=== PATIENT | female | born 1955 | race African-American/Black ===

== ENCOUNTER 2023-01-21 10:06 | Observation (INO) ==
--- NOTE | 2023-01-21 10:20 | DR.EXTPAIN ---
HPI Time seen Time Seen by Provider: 01/21/23 10:52 Complaint/Symptoms Chief Complaint Doctor Comments: 67 y/o female with persistent pain of her R leg, beneath the R knee. Pt fell on her knees 4 months ago, having problems with the R leg ever since. I saw the pt 2 months ago, appreared to have a traumatic hematoma, with infection back then. Attempted needle aspiration back then, nothing much came out. Has been seen here several times for pain, swelling of the area. Antibiotics have seemed to calm it down, but pain/swelling worsens when off antibiotics. Pt seen here 3 days ago, with worsening pain, swelling. Had a wound of the area open and drained. Now with worsening pain of the area. Sharp, severe, radiates to calf. + worse with palpation, moving. Nothing makes it better. Denies fever, chills, URI symptoms, bowel/bladder complaints. Nurses notes reviewed Nurses Notes Review: Yes Source History Provided: Patient Mode of arrival Mode of Arrival: Wheelchair PMH PMH Past Medical History: Hypertension and Seizures Past Surgical History: Yes Surgical History: Other Family History Family Medical History: Coronary Artery Disease, Heart Failure and Sudden Cardiac Social History Does patient currently use any type of tobacco product: No Alcohol Use: None Do you use any recreational Drugs:: No ROS Review of Systems Constitutional: No Symptoms Reported Eyes: No Symptoms Reported ENTM: No Symptoms Reported Respiratoy: No Symptoms Reported Cardiovascular: No Symptoms Reported Gastrointestinal/Abdominal: No Symptoms Reported Genitourinary: No Symptoms Reported Neurological: No Symptoms Reported Musculoskeletal: No Symptoms Reported Integumentary: See HPI All Other Systems: Reviewed and Negative PE Vital Signs Vitals: Vital Signs Temperature 98.0 F Pulse Rate 84 Respiratory Rate 18 Respiratory Rate 18 Blood Pressure 127/84 O2 Sat by Pulse Oximetry 100 General General Appearance: Alert and In No Apparent Distress Eyes Eye exam: PERRL and EOMI Neck Neck Exam: Normal Inspection Respiratory Respiratory Exam: Normal Lung Sounds Bilat; negative Accessory Muscle Use or Respiratory Distress Cardiovascular Cardiovascular Exam: Regular Rate, Normal Rhythm and Normal Heart Sounds Extremities Extremities Exam: negative Edema Neurological Neurological Exam: Alert, Oriented X3 and CN II-XII Intact; negative Motor Sensory Deficit Skin Skin Exam: Warm and Dry Other Exam Other Exam: R torres - + 3-4 cm round, deep open wound, with some white exudate. + surrounding erythema/tenderness. No obvious fuctuance. Distal NV intact. COURSE Treatment Treatment: 67 y/o female with large, open wound of R anterior proximal torres, recently opened and drained. + concerning for worsening infection. Labs obtained. 1354 - recommend admission for IV antibiotics. Will consult with surgery, discussed with Dr Somers, will see later today. Discussed with Dr Juarez, pest control worker helper, accepts the admission. Will treat with IV zosyn/vancomycin. ROR Labs Reviewed 01/21/23 11:45 01/21/23 11:45 Laboratory: 01/21/23 11:06 Knee - Right Wound Gram Stain - Final WBC 9.8 X10^3/uL (3.6-10.0) 01/21/23 11:45 RBC 4.21 X10^6/uL (3.5-5.4) 01/21/23 11:45 Hgb 11.4 g/dL (12.0-16.0) L 01/21/23 11:45 Hct 35.7 % (36.0-47.0) L 01/21/23 11:45 MCV 84.8 fL (80.0-100.0) 01/21/23 11:45 MCH 27.1 pg (27.0-34.0) 01/21/23 11:45 MCHC 31.9 g/dL (33.0-35.0) L 01/21/23 11:45 RDW 14.4 % (11.6-16.5) 01/21/23 11:45 Plt Count 223 X10^3/uL (150.0-450.0) 01/21/23 11:45 MPV 7.4 fL (7.4-11.0) 01/21/23 11:45 Neut % (Auto) 77.7 % (42.0-75.0) H 01/21/23 11:45 Lymph % (Auto) 11.1 % (21.0-51.0) L 01/21/23 11:45 [place] % (Auto) 6.7 % (0.0-13.0) 01/21/23 11:45 Eos % (Auto) 3.8 % (0.9-2.9) H 01/21/23 11:45 Baso % (Auto) 0.7 % (0.2-1.0) 01/21/23 11:45 Neut # (Auto) 7.6 x10^3/uL (2.2-4.8) H 01/21/23 11:45 Lymph # (Auto) 1.1 X10^3/uL (1.3-2.9) L 01/21/23 11:45 [place] # (Auto) 0.7 x10^3/uL (0.3-0.8) 01/21/23 11:45 Eos # (Auto) 0.4 x10^3/uL (0.0-0.2) H 01/21/23 11:45 Baso # (Auto) 0.1 X10^3/uL (0.0-0.1) 01/21/23 11:45 Absolute Nucleated RBC 0.1 /100WBC 01/21/23 11:45 Sodium 136 mmol/L (136-145) 01/21/23 11:45 Corrected Sodium TNP 01/21/23 11:45 Potassium 4.2 mmol/L (3.5-5.1) 01/21/23 11:45 Chloride 102 mmol/L (98-107) 01/21/23 11:45 Carbon Dioxide 21.8 mmol/L (21-32) 01/21/23 11:45 BUN 14 mg/dL (7-18) 01/21/23 11:45 Creatinine 1.27 mg/dL (0.55-1.02) H 01/21/23 11:45 Est GFR (MDRD) Af Amer 54 (>60) L 01/21/23 11:45 Est GFR (MDRD) Non-Af 45 (>60) L 01/21/23 11:45 Glucose 64 mg/dL (65-99) L 01/21/23 11:45 Lactic Acid Cancelled 01/21/23 11:45 Calcium 8.5 mg/dL (8.5-10.1) 01/21/23 11:45 Corrected Calcium 9.6 mg/dL (8.5-10.1) 01/21/23 11:45 Total Bilirubin 0.60 mg/dL (0.2-1.0) 01/21/23 11:45 AST 34 Units/L (15-37) 01/21/23 11:45 ALT 23 Units/L (12-78) 01/21/23 11:45 Alkaline Phosphatase 94 Units/L (46-116) 01/21/23 11:45 Total Protein 6.6 g/dL (6.4-8.2) 01/21/23 11:45 Albumin 2.6 g/dL (3.4-5.0) L 01/21/23 11:45 Globulin 4.0 g/dL (2.5-4.5) 01/21/23 11:45 Albumin/Globulin Ratio 0.7 Ratio (1.1-2.1) L 01/21/23 11:45 Opioid Opioid Risk Tool Age (Estiven box if 16-45): No History of Preadolescent Sexual Abuse: No Total: 0 Total Score Risk Category: Low Risk Copyright: Marcelo SINHA predicting aberrant behaviors Discharge Plan Diagnosis Discharge Problem: Cellulitis of leg, right, Open wound, lower leg Discharge Plan Patient Disposition: ADMITTED INPATIENT Condition: Stable Health Concerns: Post Hospitalization: new medications and changes needed to prevent readmission or further decline. Pt educated and given instructions on all concerns. Plan of Treatment: Continue with present treatment and follow up plan. Pt is to keep follow up appointment as instructed and take medications as ordered. Orders to Discharge Patient Discharge Orders: Transfer (Routine); Ordered 01/21/23 Ordered By: Berekte Salmon Follow ups/Referrals Follow ups/Referrals: MOISE VANN [Primary Care Provider] - 3 days
[2023-01-21 12:00] LABS: BASOPHILS # (AUTO) 0.1 X10^3/uL (0.0-0.1); BASOPHILS % (AUTO) 0.7 % (0.2-1.0); EOSINOPHILS # (AUTO) 0.4 x10^3/uL (0.0-0.2); EOSINOPHILS % (AUTO) 3.8 % (0.9-2.9); HEMATOCRIT 35.7 % (36.0-47.0); HEMOGLOBIN 11.4 g/dL (12.0-16.0); LYMPHOCYTES # (AUTO) 1.1 X10^3/uL (1.3-2.9); LYMPHOCYTES % (AUTO) 11.1 % (21.0-51.0); MEAN CORPUSCULAR HEMOGLOBIN 27.1 pg (27.0-34.0); MEAN CORPUSCULAR HGB CONC 31.9 g/dL (33.0-35.0); MEAN CORPUSCULAR VOLUME 84.8 fL (80.0-100.0); MEAN PLATELET VOLUME 7.4 fL (7.4-11.0); MONOCYTES # (AUTO) 0.7 x10^3/uL (0.3-0.8); MONOCYTES % (AUTO) 6.7 % (0.0-13.0); NEUTROPHILS # (AUTO) 7.6 x10^3/uL (2.2-4.8); NEUTROPHILS % (AUTO) 77.7 % (42.0-75.0); PLATELET COUNT 223 X10^3/uL (150.0-450.0); RED BLOOD COUNT 4.21 X10^6/uL (3.5-5.4); RED CELL DISTRIBUTION WIDTH 14.4 % (11.6-16.5); WHITE BLOOD COUNT 9.8 X10^3/uL (3.6-10.0)
[2023-01-21 12:16] LABS: ALANINE AMINOTRANSFERASE 23 Units/L (12-78); ALBUMIN 2.6 g/dL (3.4-5.0); ALKALINE PHOSPHATASE 94 Units/L (46-116); ASPARTATE AMINO TRANSFERASE 34 Units/L (15-37); BLOOD UREA NITROGEN 14 mg/dL (7-18); CALCIUM 8.5 mg/dL (8.5-10.1); CARBON DIOXIDE 21.8 mmol/L (21-32); CHLORIDE 102 mmol/L (98-107); COR CA(FOR HYPOALB) 9.6 mg/dL (8.5-10.1); CREATININE 1.27 mg/dL (0.55-1.02); GLUCOSE 64 mg/dL (65-99); POTASSIUM 4.2 mmol/L (3.5-5.1); SODIUM 136 mmol/L (136-145); TOTAL PROTEIN 6.6 g/dL (6.4-8.2); eGFR NON BLACK RACES 45 (>60)
[2023-01-21] MEDS ORDERED: MORPHINE SULFATE INJ 4 MG IVP ONE (12:31)
[2023-01-21] MEDS ORDERED: ZOFRAN INJ 4 MG VIAL IVP ONE (12:31)
[2023-01-21] MEDS ORDERED: MORPHINE SULFATE INJ 4 MG ONE (12:43)
[2023-01-21] MEDS ORDERED: ZOFRAN INJ 4 MG VIAL ONE (12:43)
[2023-01-21] MEDS ORDERED: ZOSYN VIAL 3.375 GRAMS 3.375 G in NS 100 ML IV 100 ML IV ONE (13:30)
[2023-01-21] MEDS ORDERED: NS 100 ML IV 100 ML ONE ×2 (13:37→13:54)
[2023-01-21] MEDS ORDERED: ZOSYN VIAL 3.375 GRAMS IV ONE ×2 (13:37→13:54)
[2023-01-21] MEDS ORDERED: VANCOMYCIN IV *PREMIX 1 G/200 ML BAG 1 G/200 ML PIGGYBACK IV ONE ×2 (13:54→14:13)
[2023-01-21] MEDS ORDERED: PHARMACY CONSULT - VANCOMYCIN XX SCH (14:00)
[2023-01-21] MEDS ORDERED: CONSULT PHARMACY - POTASSIUM & MAGNESIUM XX SCH (15:24)
[2023-01-21] MEDS ORDERED: VANCOMYCIN IV *PREMIX 1 G/200 ML BAG 1 G/200 ML PIGGYBACK IV SCH ×2 (15:24→22:00)
[2023-01-21] MEDS: LOVENOX INJ 40 MG SYR SC SCH (16:30)
[2023-01-21] MEDS: ZOSYN VIAL 3.375 GRAMS 3.375 G in NS 100 ML IV 100 ML IV SCH ×2 (16:40→21:02)
[2023-01-21] MEDS ORDERED: NovoLIN R (or HumuLIN R) SC PRN (17:03)
[2023-01-21] MEDS: GLUTOSE 15 GEL ORAL PO PRN (17:05)
[2023-01-21] MEDS ORDERED: GLUTOSE 15 GEL ORAL PO ONE (17:08)
[2023-01-21] MEDS ORDERED: NS 500 ML IV 500 ML IV PRN (19:21)
[2023-01-21] MEDS ORDERED: TYLENOL 325 MG TAB PO PRN (19:33)
[2023-01-21] MEDS: VANCOMYCIN IV *PREMIX 1 G/200 ML BAG 1 G/200 ML PIGGYBACK IV SCH (21:01)
[2023-01-21] MEDS: MORPHINE SULFATE INJ 2 MG INJ IVP PRN (23:11)
[2023-01-22 05:07] LABS: BASOPHILS # (AUTO) 0.1 X10^3/uL (0.0-0.1); BASOPHILS % (AUTO) 0.7 % (0.2-1.0); EOSINOPHILS # (AUTO) 0.4 x10^3/uL (0.0-0.2); EOSINOPHILS % (AUTO) 5.5 % (0.9-2.9); HEMATOCRIT 27.7 % (36.0-47.0); LYMPHOCYTES # (AUTO) 0.9 X10^3/uL (1.3-2.9); LYMPHOCYTES % (AUTO) 12.4 % (21.0-51.0); MEAN CORPUSCULAR HEMOGLOBIN 27.5 pg (27.0-34.0); MEAN CORPUSCULAR HGB CONC 32.7 g/dL (33.0-35.0); MEAN CORPUSCULAR VOLUME 84.1 fL (80.0-100.0); MEAN PLATELET VOLUME 7.7 fL (7.4-11.0); MONOCYTES # (AUTO) 0.6 x10^3/uL (0.3-0.8); MONOCYTES % (AUTO) 8.5 % (0.0-13.0); NEUTROPHILS # (AUTO) 5.5 x10^3/uL (2.2-4.8); NEUTROPHILS % (AUTO) 72.9 % (42.0-75.0); PLATELET COUNT 279 X10^3/uL (150.0-450.0); RED CELL DISTRIBUTION WIDTH 14.5 % (11.6-16.5); WHITE BLOOD COUNT 7.5 X10^3/uL (3.6-10.0)
[2023-01-22] MEDS ORDERED: D50W ABBOJECT SYR IV ONE (05:18)
[2023-01-22 05:20] LABS: ALANINE AMINOTRANSFERASE 12 Units/L (12-78); ALBUMIN 1.6 g/dL (3.4-5.0); ALKALINE PHOSPHATASE 63 Units/L (46-116); ASPARTATE AMINO TRANSFERASE 17 Units/L (15-37); BLOOD UREA NITROGEN 16 mg/dL (7-18); CALCIUM 7.9 mg/dL (8.5-10.1); CARBON DIOXIDE 22.7 mmol/L (21-32); CHLORIDE 108 mmol/L (98-107); COR CA(FOR HYPOALB) 9.8 mg/dL (8.5-10.1); CREATININE 1.31 mg/dL (0.55-1.02); GLUCOSE 78 mg/dL (65-99); POTASSIUM 4.1 mmol/L (3.5-5.1); SODIUM 141 mmol/L (136-145); TOTAL PROTEIN 5.2 g/dL (6.4-8.2); eGFR NON BLACK RACES 43 (>60)
[2023-01-22] MEDS: ZOSYN VIAL 3.375 GRAMS 3.375 G in NS 100 ML IV 100 ML IV SCH ×3 (05:20→21:39)
[2023-01-22] MEDS: VANCOMYCIN IV *PREMIX 1 G/200 ML BAG 1 G/200 ML PIGGYBACK IV SCH ×3 (05:21→20:30)
[2023-01-22 05:26] LABS: HEMOGLOBIN 9.1 g/dL (12.0-16.0)
[2023-01-22] MEDS ORDERED: D50W ABBOJECT SYR ONE (05:36)
[2023-01-22] MEDS: MORPHINE SULFATE INJ 2 MG INJ IVP PRN ×4 (07:20→20:55)
[2023-01-22] MEDS: LOVENOX INJ 40 MG SYR SC SCH (08:23)
[2023-01-22] MEDS ORDERED: NORCO 5/325 MG TAB ONE (09:15)
[2023-01-22] MEDS: NORCO 5/325 MG TAB PO PRN ×2 (09:18→14:54)
--- NOTE | 2023-01-22 12:07 | DR.H&P ---
H&P - History & Physical for Day of: H&P Date: 01/21/23 - Chief Complaint Chief Complaint: RIGHT LEG PAIN AND WOUND - History of Present Illness History of Present Illness: IS A 67 YEAR OLD PATIENT OF [facility]. SHE HAS A PMH OF HTN AND SEIZURE DISORDER. PRESENTED TO THE ER WITH COMPLAINTS OF RIGHT LEG PAIN. PAIN IS LOCATED JUST BENEATH THE RIGHT KNEE. PATIENT REPORTS INITIALLY FALLING ON HER KNEES FOUR MONTHS AGO. SINCE THEN, SHE HAS HAD INTERMITTENT PAIN IN SWELLING IN THAT LEG. WHEN THE INCIDENT FIRST OCCURRED, PATIENT DEVELOPED A TRAUMATIC HEMATOMA WITH INFECTION. NEEDLE ASPIRATION WAS ATTEMPTED BUT NO DRAINAGE WAS COLLECTED. SHE HAS BEEN ON SEVERAL ANTIBITOTICS SINCE THEN. SHE REPORTS THAT SYMPTOMS IMPROVE WHILE SHE IS ON ANTIBIOTICS, BUT WORSEN WHEN SHE IS OFF. SHE COMPLAINS OF WORSENING PAIN AND SWELLING FOR THE PAST 3 DAYS. THERE IS NOW A 3-4 CM OPEN WOUND BENEATH THE KNEE WITH PURULENT DRAINAGE. THERE IS ERYTHEMA AND TENDERNESS SURROUNDING THE WOUND. SHE DESCRIBES PAIN SHARP, CONSTANT, AND WORSE WITH MOVEMENT OR PALPATION. SHE RATES PAIN A 7/10. SHE DENIES FEVER, CHILLS, URI SX, BOWEL OR BLADDER COMPLAINTS. ON ARRIVAL TO THE HOSPITAL, HER VITALS WERE: 98.0-84-18-100%-127/84. LABS WERE OBTAINED. WBC 9.8, RBC 4.21, HGB 11.4, HCT 35.7, SODIUM 136, POTASSIUM 4.2, CHLORIDE 102, BUN 14, CREATININE 1.27, GLUCOSE 64, CALCIUM 8.5, AST 34, ALT 23, ALK PHOS 23, TOTAL PROTEIN 6.6, ALBUMIN 2.6. WOUND AND BLOOD CULTURES WERE SET UP. A VENOUS DOPPLER WAS OBTAINED ON 01/11 AND WAS NEGATIVE FOR DVT. RIGHT TIB/FIB XRAY ONLY REVEALED EXTENSIVE SUBCUTANEOUS EDEMA. IN THE ER, SHE WAS GIVEN MORPHINE 4MG IV X 1 DOSE, ZOFRAN 4MG IV X 1 DOSE, ZOSYN 3.375G IV X 1 DOSE, VANCOMYCIN 1G IV X 1 DOSE. SHE WAS ADMITTED TO THE HOSPITAL OBSERVATION STATUS FOR FURTHER EVALUATION AND TREATMENT OF RIGHT LEG CELLULITIS, RIGHT LEG NON-HEALING WOUND, HTN, SEIZURE DISORDER. SHE WAS STARTED ON ZOSYN 3.375G IV TID, VANCOMYCIN 1G IV Q8H, MORPHINE SULFATE 1-2MG IV Q4H PRN, HUMULIN R SLIDING SCALE, OTBS ACHS, NORCO 5/325MG Q6H PRN, LOVENOX 40MG SC DAILY, AND TYLENOL 650MG PO Q6H PRN. WE WILL RESUME HIS HOME MEDICATIONS OF LISINOPRIL AND LEVETIRACETAM. WE WILL CONSULT GENERAL SURGERY FOR POSSIBLE DEBRIDEMENT OF WOUND. OTHERWISE, WE WILL FOLLOW UP WITH AM LABS AND CONTINUE TO MONITOR. TIME SPENT ON CLINICAL ASSESSMENT, REVIEWING LABS AND IMAGING, DECISION MAKING, AND DOCUMENTATION GREATER THAN 75 MINUTES. - Past Medical History Past Medical History: Hypertension, Seizures - Past Surgical History Surgical History: Other - Family History Family Medical History: Coronary Artery Disease, Heart Failure, Sudden Cardiac - Social History Does patient currently use any type of tobacco product: No Alcohol Use: None Drug Use: None - Review of Systems Constitutional: denies: Fever, Chills, Weakness Eyes: No Symptoms Reported ENT: No Symptoms Reported Respiratory: No Symptoms Reported Cardiovascular: No Symptoms Reported Gastrointestinal: No Symptoms Reported Genitourinary: No Symptoms Reported Musculoskeletal: See HPI, Leg Pain (RIGHT LEG ) Skin: Wound (RIGHT LEG OPEN WOUND WITH PURULENT DRAINAGE) Neurological: No Symptoms Reported - Physical Exam Vital Signs: Vital Signs Pulse Rate 98 Pulse Rate 97 Pulse Rate 106 Respiratory Rate 20 Respiratory Rate 18 Respiratory Rate 18 Respiratory Rate 18 Respiratory Rate 16 Respiratory Rate 16 Blood Pressure 115/56 Blood Pressure 115/70 Blood Pressure 93/53 O2 Sat by Pulse Oximetry 100 O2 Sat by Pulse Oximetry 100 O2 Sat by Pulse Oximetry 100 Oriented: Normal Eyes: Normal Ear: Normal Nose: Normal Throat: Normal Respiratory: Clear Throughout Cardiovascular: Normal : Normal Auscultation: Bowel Sounds: Normal Palpation: Normal Tenderness: Normal Skin: Red, Tender, Wound (RIGHT LEG (BELOW KNEE) ) Musculoskeletal: Right, Leg, Swelling, Tender Psychiatric: Normal Mood Description: Calm Affect: Normal Speech Pattern: Clear - Assessment/Plan (1) Cellulitis of leg, right Status: Acute Plan: ADMIT, SURGICAL CONSULT FOR DEBRIDEMENT, ZOSYN 3.375G IV TID, VANCOMYCIN 1G IV Q8H, MORPHINE SULFATE 1-2MG IV Q4H PRN, HUMULIN R SLIDING SCALE, OTBS ACHS, NORCO 5/325MG Q6H PRN, LOVENOX 40MG SC DAILY, AND TYLENOL 650MG PO Q6H PRN (2) Non-healing wound of right lower extremity Status: Acute (3) HTN (hypertension) Qualifiers: Hypertension type: primary hypertension Qualified Code(s): I10 - Essential (primary) hypertension Status: Chronic Plan: CONTINUE LISINOPRIL (4) Seizure disorder Status: Chronic Plan: CONTINUE LEVETIRACETAM - Allergies Allergies/Adverse Reactions: Allergies Allergy/AdvReac Type Severity Reaction Status Date / Time No Known Drug Allergies Allergy Verified 01/17/23 18:00 - Medications Home Medications: Home Medications Medication Instructions Recorded Confirmed levetiracetam 500 mg tablet 500 mg PO BID 01/21/23 01/21/23 lisinopril 20 mg tablet 20 mg PO BID 01/21/23 01/21/23
[2023-01-22 12:58] VITALS: BMI 42.3
[2023-01-22] MEDS ORDERED: PHARMACY COMMENT IV NR (13:30)
[2023-01-22 14:10] LABS: CREATININE 1.04 mg/dL (0.55-1.02); VANCOMYCIN,TROUGH 15.9 ug/mL (15-20)
[2023-01-22] MEDS: KEPPRA TAB 500 MG PO SCH ×2 (14:54→21:30)
[2023-01-22] MEDS: GLUTOSE 15 GEL ORAL PO PRN (15:33)
--- NOTE | 2023-01-23 | DR.CONSULT ---
CONSULT Consultation for Day of: Date: 01/22/23 Chief Complaint Chief Complaint: Wound to the right leg below the knee Allergies Allergies Allergy/AdvReac Type Severity Reaction Status Date / Time No Known Drug Allergies Allergy Verified 01/17/23 18:00 History of Present Illness History of Present Illness: this is a 67 year old female who fell several weeks ago and has a non-healing wound below the knee on the right side. Wound is open and measured approximately 5 by 4 by 0.8 cm with exudate and questionable abscess above this in the subcutaneous tissue. Past Medical History Past Medical History: Hypertension and Seizures Past Surgical History Surgical History: Other Family History Family Medical History: Coronary Artery Disease, Heart Failure and Sudden Cardiac Social History Does patient currently use any type of tobacco product: No Alcohol Use: None Drug Use: None Medications Home Medications: No Known Drug Allergies Allergy (Verified 01/17/23 18:00) CONTINUE taking the following medications levetiracetam 500 mg tablet 500 mg PO BID 01/21/23 [History] lisinopril 20 mg tablet 20 mg PO BID 01/21/23 [History] Review of Systems Constitutional: See HPI Eyes: No Symptoms Reported ENT: No Symptoms Reported Respiratory: No Symptoms Reported Cardiovascular: No Symptoms Reported Gastrointestinal: No Symptoms Reported Genitourinary: No Symptoms Reported Musculoskeletal: No Symptoms Reported Skin: See HPI Neurological: No Symptoms Reported Physical Exam Vital Signs: Vital Signs Temperature 97.8 F Temperature 97.3 F Temperature 97.1 F Pulse Rate 110 Pulse Rate 108 Pulse Rate 109 Pulse Rate 106 Pulse Rate 107 Pulse Rate 108 Pulse Rate 115 Pulse Rate 122 Pulse Rate 103 Pulse Rate 104 Pulse Rate 101 Pulse Rate 101 Pulse Rate 105 Pulse Rate 104 Pulse Rate 109 Pulse Rate 109 Pulse Rate 115 Pulse Rate 140 Pulse Rate 122 Pulse Rate 122 Pulse Rate 118 Pulse Rate 121 Pulse Rate 103 Pulse Rate 108 Pulse Rate 108 Pulse Rate 116 Pulse Rate 122 Pulse Rate 117 Pulse Rate 117 Pulse Rate 117 Respiratory Rate 22 Respiratory Rate 23 Respiratory Rate 21 Respiratory Rate 19 Respiratory Rate 18 Respiratory Rate 18 Respiratory Rate 22 Respiratory Rate 20 Respiratory Rate 24 Respiratory Rate 34 Respiratory Rate 15 Respiratory Rate 20 Respiratory Rate 21 Respiratory Rate 20 Respiratory Rate 14 Respiratory Rate 18 Respiratory Rate 20 Respiratory Rate 18 Respiratory Rate 22 Respiratory Rate 44 Respiratory Rate 22 Respiratory Rate 22 Respiratory Rate 19 Respiratory Rate 30 Respiratory Rate 17 Respiratory Rate 16 Respiratory Rate 16 Respiratory Rate 14 Respiratory Rate 20 Respiratory Rate 21 Respiratory Rate 20 Respiratory Rate 18 Respiratory Rate 22 Respiratory Rate 16 Respiratory Rate 16 Blood Pressure 108/59 Blood Pressure 140/74 Blood Pressure 145/67 Blood Pressure 101/61 Blood Pressure 99/55 Blood Pressure 110/58 Blood Pressure 110/58 Blood Pressure 101/56 Blood Pressure 101/56 Blood Pressure 106/55 Blood Pressure 106/55 O2 Sat by Pulse Oximetry 100 O2 Sat by Pulse Oximetry 100 O2 Sat by Pulse Oximetry 100 O2 Sat by Pulse Oximetry 100 O2 Sat by Pulse Oximetry 100 O2 Sat by Pulse Oximetry 100 O2 Sat by Pulse Oximetry 100 O2 Sat by Pulse Oximetry 97 O2 Sat by Pulse Oximetry 99 O2 Sat by Pulse Oximetry 100 O2 Sat by Pulse Oximetry 100 O2 Sat by Pulse Oximetry 100 O2 Sat by Pulse Oximetry 100 O2 Sat by Pulse Oximetry 98 O2 Sat by Pulse Oximetry 99 O2 Sat by Pulse Oximetry 99 O2 Sat by Pulse Oximetry 100 O2 Sat by Pulse Oximetry 100 O2 Sat by Pulse Oximetry 100 O2 Sat by Pulse Oximetry 100 O2 Sat by Pulse Oximetry 100 O2 Sat by Pulse Oximetry 100 O2 Sat by Pulse Oximetry 99 O2 Sat by Pulse Oximetry 100 O2 Sat by Pulse Oximetry 100 O2 Sat by Pulse Oximetry 100 O2 Sat by Pulse Oximetry 100 O2 Sat by Pulse Oximetry 100 O2 Sat by Pulse Oximetry 100 O2 Sat by Pulse Oximetry 100 Oriented: Normal, Time, Person and Place Eyes: Normal Ear: Normal Nose: Normal Throat: Normal Respiratory: Clear Throughout Cardiovascular: Normal : Normal Auscultation: Bowel Sounds: Normal Palpation: Normal Tenderness: Normal Skin: Wound (5 by 4 by 0.8 cm wound exudate [id number] over the anterior tibial surface with fluctuance above the superior Rim consistent with possible abscess. No obvious cellulitis. ) Musculoskeletal: Normal Psychiatric: Normal Mood Description: Calm Affect: Normal Speech Pattern: Clear Plan (1) Cellulitis of leg, right: Status: Acute Plan: Continue IV antibiotics (2) Non-healing wound of right lower extremity: Status: Acute Plan: will debride the wound and open any undrain puss and place wound vacuum tomorrow (3) HTN (hypertension): Status: Chronic Qualifiers: Hypertension type: primary hypertension Qualified Code(s): I10 - Essential (primary) hypertension Plan: home medications (4) Seizure disorder: Status: Chronic Plan: home medications
[2023-01-23] MEDS: VANCOMYCIN IV *PREMIX 1 G/200 ML BAG 1 G/200 ML PIGGYBACK IV SCH ×3 (05:38→22:40)
[2023-01-23 05:43] LABS: BASOPHILS # (AUTO) 0.1 X10^3/uL (0.0-0.1); BASOPHILS % (AUTO) 0.8 % (0.2-1.0); EOSINOPHILS # (AUTO) 0.4 x10^3/uL (0.0-0.2); HEMATOCRIT 27.3 % (36.0-47.0); LYMPHOCYTES # (AUTO) 1.2 X10^3/uL (1.3-2.9); LYMPHOCYTES % (AUTO) 16.3 % (21.0-51.0); MEAN CORPUSCULAR HEMOGLOBIN 27.7 pg (27.0-34.0); MEAN CORPUSCULAR HGB CONC 32.8 g/dL (33.0-35.0); MEAN CORPUSCULAR VOLUME 84.5 fL (80.0-100.0); MEAN PLATELET VOLUME 7.5 fL (7.4-11.0); MONOCYTES # (AUTO) 0.7 x10^3/uL (0.3-0.8); MONOCYTES % (AUTO) 9.6 % (0.0-13.0); NEUTROPHILS % (AUTO) 68.3 % (42.0-75.0); PLATELET COUNT 300 X10^3/uL (150.0-450.0); RED BLOOD COUNT 3.23 X10^6/uL (3.5-5.4); RED CELL DISTRIBUTION WIDTH 14.7 % (11.6-16.5); WHITE BLOOD COUNT 7.4 X10^3/uL (3.6-10.0)
[2023-01-23] MEDS: ZOSYN VIAL 3.375 GRAMS 3.375 G in NS 100 ML IV 100 ML IV SCH ×3 (05:51→22:54)
[2023-01-23 05:57] LABS: ALANINE AMINOTRANSFERASE 12 Units/L (12-78); ALBUMIN 1.5 g/dL (3.4-5.0); ALKALINE PHOSPHATASE 62 Units/L (46-116); ASPARTATE AMINO TRANSFERASE 18 Units/L (15-37); BLOOD UREA NITROGEN 11 mg/dL (7-18); CALCIUM 7.9 mg/dL (8.5-10.1); CARBON DIOXIDE 22.7 mmol/L (21-32); CHLORIDE 107 mmol/L (98-107); COR CA(FOR HYPOALB) 9.9 mg/dL (8.5-10.1); GLUCOSE 85 mg/dL (65-99); POTASSIUM 4.3 mmol/L (3.5-5.1); SODIUM 138 mmol/L (136-145); TOTAL PROTEIN 5.4 g/dL (6.4-8.2); eGFR NON BLACK RACES 53 (>60)
[2023-01-23] MEDS: KEPPRA TAB 500 MG PO SCH ×3 (08:03→20:20)
[2023-01-23] MEDS: LOVENOX INJ 40 MG SYR SC SCH (08:03)
[2023-01-23] MEDS: D5 NS 1,000 ML IV 1,000 ML IV SCH ×2 (08:51→22:54)
--- NOTE | 2023-01-23 09:45 | EKG ---
Test Reason : pre-op...pt is in ICU1 Blood Pressure : */* mmHG Vent. Rate : 83 BPM Atrial Rate : 83 BPM P-R Int : 148 ms QRS Dur : 74 ms QT Int : 338 ms P-R-T Axes : 60 25 28 degrees QTc Int : 397 ms Normal sinus rhythm Normal ECG No previous ECGs available Confirmed by Ivan Hernandes ([id number]) on 01/26/2023 8:05:53 AM Referred By: Confirmed By: Ivan Hernandes
[2023-01-23] MEDS ORDERED: KETAMINE 50 MG/5 ML-NACL SYRNG ONE (11:00)
[2023-01-23] MEDS ORDERED: VERSED ONE (11:01)
[2023-01-23] MEDS ORDERED: ZOFRAN INJ 4 MG VIAL ONE (11:01)
[2023-01-23] MEDS ORDERED: DIPRIVAN VIAL 20 ML ONE (11:01)
[2023-01-23] MEDS ORDERED: FENTANYL VIAL INJ 100 mcg ONE (11:01)
[2023-01-23] MEDS ORDERED: PEPCID 20 MG VIAL ONE (11:01)
[2023-01-23] MEDS ORDERED: ANCEF VIAL 1 GRAM ONE (11:07)
[2023-01-23] MEDS ORDERED: NS 100 ML IV 100 ML ONE (11:07)
[2023-01-23] MEDS ORDERED: LR 1,000 ML IV 1,000 ML IV ONE (11:07)
[2023-01-23] MEDS ORDERED: BETADINE SOLN ONE (11:09)
[2023-01-23] MEDS ORDERED: MARCAINE 0.5% ONE (11:44)
[2023-01-23] MEDS ORDERED: XYLOCAINE 2 % (PLAIN) ONE (11:49)
[2023-01-23] MEDS: MORPHINE SULFATE INJ 2 MG INJ IVP PRN ×2 (12:32→20:30)
[2023-01-23] MEDS: ZOFRAN INJ 4 MG VIAL IVP PRN (12:40)
[2023-01-23] MEDS ORDERED: ZOFRAN INJ 4 MG VIAL IVP PRN (12:42)
--- NOTE | 2023-01-23 12:48 | PCM.PROG ---
Progress Note - Progress Note for Day of Date of Exam: 01/23/23 - Subjective Subjective: IS CURRENTLY OBSERVATION STATUS FOR TREATMENT OF CELLULITIS OF THE RIGHT LEG AND A NON-HEALING WOUND OF THE RIGHT LOWER EXTREMITY. SHE HAS A PMH OF HTN AND SEIZURE DISORDER. TODAY, SHE IS ALERT AND ORIENTED, LYING IN BED ON MORNING ROUNDS. SHE CONTINUES TO COMPLAIN OF INTERMITT ENT PAIN TO THE RLE. SHE DENIES SIGNIFICANT IMPROVEMENT IN SYMPTOMS SINCE ADMISSION. ON EXAMINATION, HEART IS REGULAR IN RATE AND RHYTHM. BILATERAL LUNGS ARE NOTED WITH DIMINISHED LUNG SOUNDS THROUGHOUT. ABDOMEN IS ROUND, SOFT, AND NON-TENDER WITH NORMAL BOWEL SOUNDS NOTED IN ALL QUADRANTS. 5X4X0.8CM WOUND BELOW THE KNEE OVER THE ANTERIOR TIBIAL SURFACE NOTED. THERE IS MILD ERYTHEMA SURROUNDING SITE. GOOD RANGE OF MOTION NOTED TO UPPER AND LOWER EXTREMITIES. HER VITALS THIS [facility] ARE: 98.6-99-17-100%-110/57. LABS WERE OBTAINED. WBC 7.4, RBC 3.23, HGB 9.0, HCT 27.3, PLT COUNT 300, SODIUM 138, POTASSIUM 4.3, CHLORIDE 107, BUN 11, CREATININE 1.10, GLUCOSE 85, CALCIUM 7.9, AST 18, ALT 12, ALK PHOS 62, CRP 142.10, TOTAL PROTEIN 5.4, ALBUMIN 1.5. BLOOD CULTURES ARE PENDING. 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 CONSULTED WITH HER AND PLANS FOR DEBRIDEMENT AND PLACEMENT OF WOUND VAC TODAY. WE ARE IN AGREEMENT WITH PLANS. SHE IS CURRENTLY RECEIVING ZOSYN 3.375G IV TID, VANCOMYCIN 1G IV Q8H, MORPHINE SULFATE 1-2MG IV Q4H PRN, HUMULIN R SLIDING SCALE, OTBS ACHS, NORCO 5/325MG Q6H PRN, LOVENOX 40MG SC DAILY, AND TYLENOL 650MG PO Q6H PRN. DUE TO SOME DROP IN BLOOD GLUCOSE LEVELS SINCE SHE HAS BEEN NPO, WE WILL ADD D5NS AT 75 ML/HR. OTHERWISE, WE WILL FOLLOW UP WITH AM LABS AND CONTINUE TO MONITOR. TIME SPENT ON CLINICAL ASSESSMENT, REVIEWING LABS AND IMAGING, DECISION MAKING, AND DOCUMENTATION GREATER THAN 45 MINUTES. - Past Medical Family Social History Past Med/Fam/Surg Hx: No changes since H&P Allergies: Allergies No Known Drug Allergies Allergy (Verified 01/17/23 18:00) - Review of Systems ROS: No change since H&P - Vital Signs and I&O's Vital Signs: Vital Signs Temperature 98.6 F Pulse Rate 95 Pulse Rate 91 Pulse Rate 87 Pulse Rate 81 Pulse Rate 80 Pulse Rate 90 Pulse Rate 90 Pulse Rate 96 Pulse Rate 93 Pulse Rate 101 Pulse Rate 96 Pulse Rate 95 Pulse Rate 100 Pulse Rate 99 Pulse Rate 123 Pulse Rate 99 Pulse Rate 103 Pulse Rate 108 Pulse Rate 95 Pulse Rate 101 Pulse Rate 100 Pulse Rate 98 Pulse Rate 98 Pulse Rate 98 Pulse Rate 100 Pulse Rate 105 Pulse Rate 103 Respiratory Rate 20 Respiratory Rate 16 Respiratory Rate 19 Respiratory Rate 17 Respiratory Rate 26 Respiratory Rate 23 Respiratory Rate 18 Respiratory Rate 44 Respiratory Rate 23 Respiratory Rate 16 Respiratory Rate 28 Respiratory Rate 17 Respiratory Rate 20 Respiratory Rate 19 Respiratory Rate 17 Respiratory Rate 28 Respiratory Rate 14 Respiratory Rate 15 Respiratory Rate 15 Respiratory Rate 17 Respiratory Rate 23 Respiratory Rate 19 Respiratory Rate 18 Respiratory Rate 15 Respiratory Rate 17 Respiratory Rate 16 Respiratory Rate 19 Respiratory Rate 19 Blood Pressure 116/69 Blood Pressure 119/72 Blood Pressure 109/63 Blood Pressure 109/57 Blood Pressure 110/57 Blood Pressure 120/57 Blood Pressure 127/61 Blood Pressure 121/60 O2 Sat by Pulse Oximetry 96 O2 Sat by Pulse Oximetry 100 O2 Sat by Pulse Oximetry 100 O2 Sat by Pulse Oximetry 100 O2 Sat by Pulse Oximetry 99 O2 Sat by Pulse Oximetry 100 O2 Sat by Pulse Oximetry 100 O2 Sat by Pulse Oximetry 100 O2 Sat by Pulse Oximetry 100 O2 Sat by Pulse Oximetry 100 O2 Sat by Pulse Oximetry 100 O2 Sat by Pulse Oximetry 100 O2 Sat by Pulse Oximetry 100 O2 Sat by Pulse Oximetry 100 O2 Sat by Pulse Oximetry 100 O2 Sat by Pulse Oximetry 100 O2 Sat by Pulse Oximetry 100 O2 Sat by Pulse Oximetry 100 O2 Sat by Pulse Oximetry 100 O2 Sat by Pulse Oximetry 100 O2 Sat by Pulse Oximetry 100 O2 Sat by Pulse Oximetry 100 O2 Sat by Pulse Oximetry 100 O2 Sat by Pulse Oximetry 100 O2 Sat by Pulse Oximetry 100 O2 Sat by Pulse Oximetry 100 O2 Sat by Pulse Oximetry 100 Intake and Output: Intake & Output 01/21/23 01/22/23 01/23/23 01/24/23 11:59 11:59 11:59 11:59 Intake Total 882 / 882 1923 / 1923 600 / 600 Output Total 250 / 250 Balance 882 / 882 1923 / 1923 350 / 350 - Physical Exam Oriented: Normal, Time, Person, Place Eyes: Normal Ear: Normal Nose: Normal Throat: Normal Respiratory: Generalized, Diminished Cardiovascular: Normal : Normal Auscultation: Bowel Sounds: Normal Palpation: Normal Tenderness: Normal Skin: Wound (5 by 4 by 0.8 cm wound exudate [id number] over the anterior tibial surface with fluctuance above the superior Rim consistent with possible abscess. No obvious cellulitis.) Musculoskeletal: Normal Psychiatric: Normal Mood Description: Calm Affect: Normal Speech Pattern: Clear, Appropriate - Laboratory and Diagnostics Result Diagrams: 01/23/23 04:51 01/23/23 04:51 Labs: 01/21/23 11:45 Blood Blood Culture - Preliminary 01/21/23 11:35 Blood Blood Culture - Preliminary 01/21/23 11:06 Knee - Right Wound Gram Stain - Final 01/21/23 11:06 Knee - Right Wound Culture - Preliminary Pseudomonas Aeruginosa Laboratory WBC 7.4 X10^3/uL (3.6-10.0) 01/23/23 04:51 RBC 3.23 X10^6/uL (3.5-5.4) L 01/23/23 04:51 Hgb 9.0 g/dL (12.0-16.0) L 01/23/23 04:51 Hct 27.3 % (36.0-47.0) L 01/23/23 04:51 MCV 84.5 fL (80.0-100.0) 01/23/23 04:51 MCH 27.7 pg (27.0-34.0) 01/23/23 04:51 MCHC 32.8 g/dL (33.0-35.0) L 01/23/23 04:51 RDW 14.7 % (11.6-16.5) 01/23/23 04:51 Plt Count 300 X10^3/uL (150.0-450.0) 01/23/23 04:51 MPV 7.5 fL (7.4-11.0) 01/23/23 04:51 Neut % (Auto) 68.3 % (42.0-75.0) 01/23/23 04:51 Lymph % (Auto) 16.3 % (21.0-51.0) L 01/23/23 04:51 [place] % (Auto) 9.6 % (0.0-13.0) 01/23/23 04:51 Eos % (Auto) 5.0 % (0.9-2.9) H 01/23/23 04:51 Baso % (Auto) 0.8 % (0.2-1.0) 01/23/23 04:51 Neut # (Auto) 5.0 x10^3/uL (2.2-4.8) H 01/23/23 04:51 Lymph # (Auto) 1.2 X10^3/uL (1.3-2.9) L 01/23/23 04:51 [place] # (Auto) 0.7 x10^3/uL (0.3-0.8) 01/23/23 04:51 Eos # (Auto) 0.4 x10^3/uL (0.0-0.2) H 01/23/23 04:51 Baso # (Auto) 0.1 X10^3/uL (0.0-0.1) 01/23/23 04:51 Absolute Nucleated RBC 0.0 /100WBC 01/23/23 04:51 Sodium 138 mmol/L (136-145) 01/23/23 04:51 Corrected Sodium TNP 01/23/23 04:51 Potassium 4.3 mmol/L (3.5-5.1) 01/23/23 04:51 Chloride 107 mmol/L (98-107) 01/23/23 04:51 Carbon Dioxide 22.7 mmol/L (21-32) 01/23/23 04:51 BUN 11 mg/dL (7-18) 01/23/23 04:51 Creatinine 1.10 mg/dL (0.55-1.02) H 01/23/23 04:51 Est GFR (MDRD) Af Amer > 60 (>60) 01/23/23 04:51 Est GFR (MDRD) Non-Af 53 (>60) L 01/23/23 04:51 Glucose 85 mg/dL (65-99) 01/23/23 04:51 POC Glucose (mg/dL) 73 mg/dL (65-99) 01/23/23 04:09 Lactic Acid Cancelled 01/21/23 11:45 Calcium 7.9 mg/dL (8.5-10.1) L 01/23/23 04:51 Corrected Calcium 9.9 mg/dL (8.5-10.1) 01/23/23 04:51 Total Bilirubin 0.20 mg/dL (0.2-1.0) 01/23/23 04:51 AST 18 Units/L (15-37) 01/23/23 04:51 ALT 12 Units/L (12-78) 01/23/23 04:51 Alkaline Phosphatase 62 Units/L (46-116) 01/23/23 04:51 C-Reactive Protein 142.10 mg/L (0-3.0) H 01/23/23 04:51 Total Protein 5.4 g/dL (6.4-8.2) L 01/23/23 04:51 Albumin 1.5 g/dL (3.4-5.0) L 01/23/23 04:51 Globulin 3.9 g/dL (2.5-4.5) 01/23/23 04:51 Albumin/Globulin Ratio 0.4 Ratio (1.1-2.1) L 01/23/23 04:51 Vancomycin Trough 15.9 ug/mL (15-20) 01/22/23 13:33 - Plan (1) Cellulitis of leg, right Status: Acute Plan: SURGICAL CONSULT FOR DEBRIDEMENT, ZOSYN 3.375G IV TID, VANCOMYCIN 1G IV Q8H, MORPHINE SULFATE 1-2MG IV Q4H PRN, HUMULIN R SLIDING SCALE, OTBS ACHS, NORCO 5/325MG Q6H PRN, LOVENOX 40MG SC DAILY, AND TYLENOL 650MG PO Q6H PRN (2) Non-healing wound of right lower extremity Status: Acute (3) HTN (hypertension) Status: Chronic Qualifiers: Hypertension type: primary hypertension Qualified Code(s): I10 - Essential (primary) hypertension Plan: CONTINUE LISINOPRIL (4) Seizure disorder Status: Chronic Plan: CONTINUE LEVETIRACETAM
--- NOTE | 2023-01-23 12:48 | OR.IMMED ---
IMMEDIATE POST-OP NOTE Immediate Post-Op Note Pre-Op Diagnosis: Open wound right anterior tibial surface Post-Op Diagnosis: same Procedure: Debridement /excision of wound right anterior tibial surface and place wound vacuum Description of Procedure: dictated Surgeon/Preschool Assistant Principal: Cesar Findings: non- healing wound right leg, no obvious abscess. Specimens Removed: none sent Complications: none Discharge Progress Notes: return to I see you. Continue IV antibiotics. Continuing wound vacuum.
[2023-01-23 22:31] LABS: CREATININE 1.04 mg/dL (0.55-1.02)
[2023-01-23 22:33] LABS: VANCOMYCIN,TROUGH 20.8 ug/mL (15-20)
[2023-01-24] MEDS: MORPHINE SULFATE INJ 2 MG INJ IVP PRN ×5 (03:04→20:33)
[2023-01-24] MEDS: VANCOMYCIN IV *PREMIX 1 G/200 ML BAG 1 G/200 ML PIGGYBACK IV SCH ×2 (05:07→17:25)
[2023-01-24 05:44] LABS: BASOPHILS # (AUTO) 0.1 X10^3/uL (0.0-0.1); BASOPHILS % (AUTO) 0.8 % (0.2-1.0); EOSINOPHILS # (AUTO) 0.3 x10^3/uL (0.0-0.2); EOSINOPHILS % (AUTO) 4.7 % (0.9-2.9); HEMATOCRIT 26.4 % (36.0-47.0); HEMOGLOBIN 8.6 g/dL (12.0-16.0); LYMPHOCYTES # (AUTO) 1.3 X10^3/uL (1.3-2.9); LYMPHOCYTES % (AUTO) 17.8 % (21.0-51.0); MEAN CORPUSCULAR HEMOGLOBIN 27.2 pg (27.0-34.0); MEAN CORPUSCULAR HGB CONC 32.6 g/dL (33.0-35.0); MEAN CORPUSCULAR VOLUME 83.6 fL (80.0-100.0); MEAN PLATELET VOLUME 7.3 fL (7.4-11.0); MONOCYTES # (AUTO) 0.9 x10^3/uL (0.3-0.8); MONOCYTES % (AUTO) 13.3 % (0.0-13.0); NEUTROPHILS # (AUTO) 4.5 x10^3/uL (2.2-4.8); NEUTROPHILS % (AUTO) 63.4 % (42.0-75.0); PLATELET COUNT 277 X10^3/uL (150.0-450.0); RED BLOOD COUNT 3.15 X10^6/uL (3.5-5.4); RED CELL DISTRIBUTION WIDTH 14.4 % (11.6-16.5)
[2023-01-24 05:48] LABS: ALANINE AMINOTRANSFERASE 9 Units/L (12-78); ALBUMIN 1.4 g/dL (3.4-5.0); ALKALINE PHOSPHATASE 59 Units/L (46-116); ASPARTATE AMINO TRANSFERASE 20 Units/L (15-37); BLOOD UREA NITROGEN 7 mg/dL (7-18); CALCIUM 7.8 mg/dL (8.5-10.1); CARBON DIOXIDE 22.2 mmol/L (21-32); CHLORIDE 107 mmol/L (98-107); COR CA(FOR HYPOALB) 9.9 mg/dL (8.5-10.1); CREATININE 1.02 mg/dL (0.55-1.02); GLUCOSE 92 mg/dL (65-99); POTASSIUM 4.2 mmol/L (3.5-5.1); SODIUM 138 mmol/L (136-145); TOTAL PROTEIN 5.1 g/dL (6.4-8.2); eGFR NON BLACK RACES 58 (>60)
[2023-01-24 06:07] LABS: WHITE BLOOD COUNT 7.7 X10^3/uL (3.6-10.0)
[2023-01-24 06:09] LABS: PLATELET MORPHOLOGY COMMENT NORMAL (NORMAL)
[2023-01-24] MEDS: ZOSYN VIAL 3.375 GRAMS 3.375 G in NS 100 ML IV 100 ML IV SCH ×3 (06:09→21:55)
[2023-01-24] MEDS: LOVENOX INJ 40 MG SYR SC SCH (08:29)
[2023-01-24] MEDS: KEPPRA TAB 500 MG PO SCH ×2 (08:29→21:55)
[2023-01-24] MEDS: NORCO 5/325 MG TAB PO PRN ×2 (08:30→21:55)
[2023-01-24] MEDS: D5 NS 1,000 ML IV 1,000 ML IV SCH (10:32)
--- NOTE | 2023-01-24 11:14 | PCM.PROG ---
Progress Note Progress Note for Day of Date of Exam: 01/24/23 Subjective Subjective: PT IS A 67 YEAR OLD FEMALE ADMITTED FOR TREATMENT OF CELLULITIS OF THE RIGHT LEG AND A NON-HEALING WOUND OF THE RIGHT LOWER EXTREMITY. SHE HAS A PMH OF HTN AND SEIZURE DISORDER. THIS MORNING PATIENT IS LAYING IN BED, NO ACUTE EVENTS OVERNIGHT. SHE DOES CONTINUE TO COMPLAIN OF INTERMITTENT PAIN TO THE RLE. PAIN MEDICATION HAS BEEN HELPING. SHE IS STATUS POST WOUND DEBRIDEMENT WITH WOUND VAC PLACEMENT. LABS WERE OBTAINED. WBC 7.7, HGB 8.6, PLT 277, NA 138, K 4.2, CREATININE 1.02, GLUCOSE 92, CRP 80, BLOOD CULTURES ARE NO GROWTH TO DATE. 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 SHE IS CURRENTLY RECEIVING ZOSYN 3.375G IV TID, VANCOMYCIN 1G IV Q8H, MORPHINE SULFATE 1-2MG IV Q4H PRN, HUMULIN R SLIDING SCALE, OTBS ACHS, NORCO 5/325MG Q6H PRN, LOVENOX 40MG SC DAILY, AND TYLENOL 650MG PO Q6H PRN. SHE IS CURRENTLY RECEIVING D5NS AT 75 ML/HR. OTHERWISE, WILL CONTINUE WITH CURRENT TREATMENT PLAN. FOLLOW UP WITH LABS AND CONTINUE TO MONITOR. TIME SPENT ON CLINICAL ASSESSMENT, REVIEWING LABS AND IMAGING, DECISION MAKING, AND DOCUMENTATION GREATER THAN 45 MINUTES. Past Medical Family Social History Past Med/Fam/Surg Hx: No changes since H&P Allergies: Allergies No Known Drug Allergies Allergy (Verified 01/17/23 18:00) Review of Systems ROS: No change since H&P Vital Signs and I&O's Vital Signs: Vital Signs Temperature 98.6 F Temperature 99.3 F Pulse Rate 88 Pulse Rate 92 Pulse Rate 102 Pulse Rate 110 Pulse Rate 104 Pulse Rate 102 Pulse Rate 97 Pulse Rate 100 Pulse Rate 101 Pulse Rate 109 Pulse Rate 99 Pulse Rate 109 Pulse Rate 104 Pulse Rate 99 Pulse Rate 92 Pulse Rate 92 Pulse Rate 94 Pulse Rate 99 Pulse Rate 99 Pulse Rate 103 Pulse Rate 109 Pulse Rate 116 Pulse Rate 110 Pulse Rate 106 Pulse Rate 115 Pulse Rate 112 Pulse Rate 104 Pulse Rate 105 Pulse Rate 101 Pulse Rate 109 Pulse Rate 101 Pulse Rate 103 Pulse Rate 109 Respiratory Rate 14 Respiratory Rate 17 Respiratory Rate 17 Respiratory Rate 20 Respiratory Rate 20 Respiratory Rate 22 Respiratory Rate 16 Respiratory Rate 16 Respiratory Rate 22 Respiratory Rate 17 Respiratory Rate 16 Respiratory Rate 17 Respiratory Rate 26 Respiratory Rate 18 Respiratory Rate 17 Respiratory Rate 19 Respiratory Rate 65 Respiratory Rate 18 Respiratory Rate 22 Respiratory Rate 17 Respiratory Rate 16 Respiratory Rate 21 Respiratory Rate 16 Respiratory Rate 14 Respiratory Rate 17 Respiratory Rate 18 Respiratory Rate 17 Respiratory Rate 17 Respiratory Rate 31 Respiratory Rate 26 Respiratory Rate 19 Respiratory Rate 18 Respiratory Rate 29 Respiratory Rate 19 Respiratory Rate 16 Respiratory Rate 24 Respiratory Rate 18 Respiratory Rate 17 Blood Pressure 108/61 Blood Pressure 101/53 Blood Pressure 107/57 Blood Pressure 101/62 Blood Pressure 90/50 Blood Pressure 90/50 Blood Pressure 98/53 Blood Pressure 85/48 Blood Pressure 98/53 Blood Pressure 117/62 Blood Pressure 117/62 O2 Sat by Pulse Oximetry 100 O2 Sat by Pulse Oximetry 100 O2 Sat by Pulse Oximetry 100 O2 Sat by Pulse Oximetry 100 O2 Sat by Pulse Oximetry 100 O2 Sat by Pulse Oximetry 100 O2 Sat by Pulse Oximetry 100 O2 Sat by Pulse Oximetry 100 O2 Sat by Pulse Oximetry 100 O2 Sat by Pulse Oximetry 100 O2 Sat by Pulse Oximetry 100 O2 Sat by Pulse Oximetry 100 O2 Sat by Pulse Oximetry 100 O2 Sat by Pulse Oximetry 98 O2 Sat by Pulse Oximetry 100 O2 Sat by Pulse Oximetry 100 O2 Sat by Pulse Oximetry 100 O2 Sat by Pulse Oximetry 100 O2 Sat by Pulse Oximetry 100 O2 Sat by Pulse Oximetry 100 O2 Sat by Pulse Oximetry 100 O2 Sat by Pulse Oximetry 100 O2 Sat by Pulse Oximetry 100 O2 Sat by Pulse Oximetry 100 O2 Sat by Pulse Oximetry 99 O2 Sat by Pulse Oximetry 100 O2 Sat by Pulse Oximetry 99 O2 Sat by Pulse Oximetry 99 O2 Sat by Pulse Oximetry 99 O2 Sat by Pulse Oximetry 100 O2 Sat by Pulse Oximetry 99 O2 Sat by Pulse Oximetry 99 O2 Sat by Pulse Oximetry 99 Intake and Output: Intake & Output 01/21/23 01/22/23 01/23/23 01/24/23 23:59 23:59 23:59 23:59 Intake Total 674 / 674 188 / 188 3059 / 3059 627 / 627 Output Total 250 / 250 Balance 674 / 674 188 / 1881 2809 / 2809 627 / 627 Physical Exam Oriented: Normal, Time, Person and Place Eyes: Normal Ear: Normal Nose: Normal Throat: Normal Respiratory: Generalized and Diminished Cardiovascular: Normal : Normal Auscultation: Bowel Sounds: Normal Tenderness: Normal Skin: Wound (wound vac placed) Musculoskeletal: Normal Psychiatric: Normal Mood Description: Calm Affect: Normal Speech Pattern: Clear and Appropriate Laboratory and Diagnostics 01/24/23 04:20 01/24/23 04:20 Labs: 01/23/23 12:00 Leg - Right Wound Gram Stain - Final 01/23/23 12:00 Leg - Right Wound Culture - Preliminary 01/21/23 11:06 Knee - Right Wound Gram Stain - Final 01/21/23 11:06 Knee - Right Wound Culture - Final Pseudomonas Aeruginosa 01/21/23 11:45 Blood Blood Culture - Preliminary 01/21/23 11:35 Blood Blood Culture - Preliminary Laboratory WBC 7.7 X10^3/uL (3.6-10.0) 01/24/23 04:20 RBC 3.15 X10^6/uL (3.5-5.4) L 01/24/23 04:20 Hgb 8.6 g/dL (12.0-16.0) L 01/24/23 04:20 Hct 26.4 % (36.0-47.0) L 01/24/23 04:20 MCV 83.6 fL (80.0-100.0) 01/24/23 04:20 MCH 27.2 pg (27.0-34.0) 01/24/23 04:20 MCHC 32.6 g/dL (33.0-35.0) L 01/24/23 04:20 RDW 14.4 % (11.6-16.5) 01/24/23 04:20 Plt Count 277 X10^3/uL (150.0-450.0) 01/24/23 04:20 Plt Count Comment Adequate (ADEQUATE) 01/24/23 04:20 MPV 7.3 fL (7.4-11.0) L 01/24/23 04:20 Neut % (Auto) 63.4 % (42.0-75.0) 01/24/23 04:20 Lymph % (Auto) 17.8 % (21.0-51.0) L 01/24/23 04:20 [place] % (Auto) 13.3 % (0.0-13.0) H 01/24/23 04:20 Eos % (Auto) 4.7 % (0.9-2.9) H 01/24/23 04:20 Baso % (Auto) 0.8 % (0.2-1.0) 01/24/23 04:20 Neut # (Auto) 4.5 x10^3/uL (2.2-4.8) 01/24/23 04:20 Lymph # (Auto) 1.3 X10^3/uL (1.3-2.9) 01/24/23 04:20 [place] # (Auto) 0.9 x10^3/uL (0.3-0.8) H 01/24/23 04:20 Eos # (Auto) 0.3 x10^3/uL (0.0-0.2) H 01/24/23 04:20 Baso # (Auto) 0.1 X10^3/uL (0.0-0.1) 01/24/23 04:20 Absolute Nucleated RBC 0.1 /100WBC 01/24/23 04:20 Plt Morphology Comment Normal (NORMAL) 01/24/23 04:20 RBC Morphology Normal (NORMAL) 01/24/23 04:20 Sodium 138 mmol/L (136-145) 01/24/23 04:20 Corrected Sodium TNP 01/24/23 04:20 Potassium 4.2 mmol/L (3.5-5.1) 01/24/23 04:20 Chloride 107 mmol/L (98-107) 01/24/23 04:20 Carbon Dioxide 22.2 mmol/L (21-32) 01/24/23 04:20 BUN 7 mg/dL (7-18) 01/24/23 04:20 Creatinine 1.02 mg/dL (0.55-1.02) 01/24/23 04:20 Est GFR (MDRD) Af Amer > 60 (>60) 01/24/23 04:20 Est GFR (MDRD) Non-Af 58 (>60) L 01/24/23 04:20 Glucose 92 mg/dL (65-99) 01/24/23 04:20 POC Glucose (mg/dL) 135 mg/dL (65-99) H 01/24/23 05:18 Lactic Acid Cancelled 01/21/23 11:45 Calcium 7.8 mg/dL (8.5-10.1) L 01/24/23 04:20 Corrected Calcium 9.9 mg/dL (8.5-10.1) 01/24/23 04:20 Total Bilirubin 0.30 mg/dL (0.2-1.0) 01/24/23 04:20 AST 20 Units/L (15-37) 01/24/23 04:20 ALT 9 Units/L (12-78) L 01/24/23 04:20 Alkaline Phosphatase 59 Units/L (46-116) 01/24/23 04:20 C-Reactive Protein 80.50 mg/L (0-3.0) H 01/24/23 04:20 Total Protein 5.1 g/dL (6.4-8.2) L 01/24/23 04:20 Albumin 1.4 g/dL (3.4-5.0) L 01/24/23 04:20 Globulin 3.7 g/dL (2.5-4.5) 01/24/23 04:20 Albumin/Globulin Ratio 0.4 Ratio (1.1-2.1) L 01/24/23 04:20 Vancomycin Trough 20.8 ug/mL (15-20) H* 01/23/23 21:30 Plan (1) Cellulitis of leg, right: Status: Acute Plan: S/P DEBRIDEMENT AND WOUND VAC PLACEMENT, ZOSYN 3.375G IV TID, VANCOMYCIN 1G IV Q8H, MORPHINE SULFATE 1-2MG IV Q4H PRN, HUMULIN R SLIDING SCALE, OTBS ACHS, NORCO 5/325MG Q6H PRN, LOVENOX 40MG SC DAILY, AND TYLENOL 650MG PO Q6H PRN (2) Non-healing wound of right lower extremity: Status: Acute (3) HTN (hypertension): Status: Chronic Qualifiers: Hypertension type: primary hypertension Qualified Code(s): I10 - Essential (primary) hypertension Plan: CONTINUE LISINOPRIL (4) Seizure disorder: Status: Chronic Plan: CONTINUE LEVETIRACETAM
--- NOTE | 2023-01-24 18:41 | NOTE.SOAP ---
Soap Note Note for Day of Date of Exam: 01/24/23 Subjective Data Subjective Data: POD # 1 after debridement of right leg wound and application of wound vacuum. Objective Data Temperature: 97.6 F Pulse Rate: 87 Respiratory Rate: 21 Blood Pressure: 119/60 O2 Sat by Pulse Oximetry: 100 Objective Data: Wound vacuum in pLACE WITH VERY LITTLE OUTPUT. WOUND IS CLEAN, Cultures of wound positive for Pseudomonas . Assessment Assessment: s/p DEBRIDEMENT OF RIGHT LEG WOUND. DOING WELL. Plan Plan: Continue wound vacuum . May be able to switch to po Cipro as the wound cultures are sensitive to this. May need some PT of SNF placement as she is walking very little.
[2023-01-25] MEDS: MORPHINE SULFATE INJ 2 MG INJ IVP PRN ×3 (02:30→21:00)
[2023-01-25 05:24] LABS: BASOPHILS % (AUTO) 0.6 % (0.2-1.0); EOSINOPHILS # (AUTO) 0.3 x10^3/uL (0.0-0.2); EOSINOPHILS % (AUTO) 5.1 % (0.9-2.9); HEMATOCRIT 25.7 % (36.0-47.0); HEMOGLOBIN 8.4 g/dL (12.0-16.0); LYMPHOCYTES # (AUTO) 0.9 X10^3/uL (1.3-2.9); LYMPHOCYTES % (AUTO) 16.6 % (21.0-51.0); MEAN CORPUSCULAR HEMOGLOBIN 27.4 pg (27.0-34.0); MEAN CORPUSCULAR HGB CONC 32.7 g/dL (33.0-35.0); MEAN CORPUSCULAR VOLUME 83.7 fL (80.0-100.0); MEAN PLATELET VOLUME 6.6 fL (7.4-11.0); MONOCYTES # (AUTO) 0.7 x10^3/uL (0.3-0.8); MONOCYTES % (AUTO) 12.6 % (0.0-13.0); NEUTROPHILS # (AUTO) 3.7 x10^3/uL (2.2-4.8); NEUTROPHILS % (AUTO) 65.1 % (42.0-75.0); PLATELET COUNT 295 X10^3/uL (150.0-450.0); RED BLOOD COUNT 3.07 X10^6/uL (3.5-5.4); RED CELL DISTRIBUTION WIDTH 14.4 % (11.6-16.5); WHITE BLOOD COUNT 5.7 X10^3/uL (3.6-10.0)
[2023-01-25] MEDS: VANCOMYCIN IV *PREMIX 1 G/200 ML BAG 1 G/200 ML PIGGYBACK IV SCH ×2 (05:27→18:10)
[2023-01-25] MEDS: D5 NS 1,000 ML IV 1,000 ML IV SCH ×3 (05:27→22:30)
[2023-01-25 05:39] LABS: ALANINE AMINOTRANSFERASE 12 Units/L (12-78); ALBUMIN 1.5 g/dL (3.4-5.0); ALKALINE PHOSPHATASE 54 Units/L (46-116); ASPARTATE AMINO TRANSFERASE 17 Units/L (15-37); BLOOD UREA NITROGEN 6 mg/dL (7-18); CALCIUM 7.7 mg/dL (8.5-10.1); CARBON DIOXIDE 25.1 mmol/L (21-32); CHLORIDE 107 mmol/L (98-107); COR CA(FOR HYPOALB) 9.7 mg/dL (8.5-10.1); CREATININE 0.97 mg/dL (0.55-1.02); GLUCOSE 99 mg/dL (65-99); SODIUM 138 mmol/L (136-145); TOTAL PROTEIN 5.3 g/dL (6.4-8.2); eGFR NON BLACK RACES > 60 (>60)
[2023-01-25] MEDS: ZOSYN VIAL 3.375 GRAMS 3.375 G in NS 100 ML IV 100 ML IV SCH ×3 (06:30→21:00)
[2023-01-25] MEDS: NORCO 5/325 MG TAB PO PRN (06:49)
[2023-01-25] MEDS: KEPPRA TAB 500 MG PO SCH ×2 (08:47→21:00)
[2023-01-25] MEDS: LOVENOX INJ 40 MG SYR SC SCH (08:47)
[2023-01-25] MEDS ORDERED: MILK OF MAGNESIA PO ONE (11:21)
--- NOTE | 2023-01-25 11:52 | PCM.PROG ---
Progress Note Progress Note for Day of Date of Exam: 01/25/23 Subjective Subjective: PT IS A 67 YEAR OLD FEMALE ADMITTED FOR TREATMENT OF CELLULITIS OF THE RIGHT LEG AND A NON-HEALING WOUND OF THE RIGHT LOWER EXTREMITY. SHE HAS A PMH OF HTN AND SEIZURE DISORDER. THIS MORNING PATIENT IS ALERT AND SITTING UP IN BED. NO ACUTE EVENTS OVERNIGHT. SHE REPORTS PAIN IN HER RIGHT LOWER EXTREMITY IS WORSE WHEN SHE HAS TO GET UP AND USE THE BEDSIDE COMMODE. PAIN MEDICATION HAS BEEN HELPING, WILL INCREASE NORCO TO 7.5MG. SHE HAS NOT HAD A BOWEL MOVEMENT IN MANY DAYS. WILL GIVE HER A DOSE OF MILK OF MAG TO HELP. SHE IS STATUS POST WOUND DEBRIDEMENT WITH WOUND VAC PLACEMENT. LABS WERE OBTAINED. WBC 5.7, HGB 8.4, PLT 295, NA 138, K 4.0, CREATININE 0.97, GLUCOSE 99, BLOOD CULTURES ARE NO GROWTH TO DATE. 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 SHE IS CURRENTLY RECEIVING ZOSYN 3.375G IV TID, VANCOMYCIN 1G IV Q8H, MORPHINE SULFATE 1-2MG IV Q4H PRN, HUMULIN R SLIDING SCALE, OTBS ACHS, NORCO 5/325MG Q6H PRN, LOVENOX 40MG SC DAILY, AND TYLENOL 650MG PO Q6H PRN. SHE IS CURRENTLY RECEIVING D5NS AT 75 ML/HR. OTHERWISE, WILL CONTINUE WITH CURRENT TREATMENT PLAN. FOLLOW UP WITH LABS AND CONTINUE TO MONITOR. TIME SPENT ON CLINICAL ASSESSMENT, REVIEWING LABS AND IMAGING, DECISION MAKING, AND DOCUMENTATION GREATER THAN 45 MINUTES. Past Medical Family Social History Past Med/Fam/Surg Hx: No changes since H&P Allergies: Allergies No Known Drug Allergies Allergy (Verified 01/17/23 18:00) Review of Systems ROS: No change since H&P Vital Signs and I&O's Vital Signs: Vital Signs Temperature 98.1 F Temperature 98.4 F Pulse Rate 89 Pulse Rate 91 Pulse Rate 90 Pulse Rate 92 Pulse Rate 93 Pulse Rate 93 Pulse Rate 99 Pulse Rate 93 Pulse Rate 94 Pulse Rate 91 Pulse Rate 96 Pulse Rate 99 Pulse Rate 108 Pulse Rate 107 Pulse Rate 90 Pulse Rate 94 Pulse Rate 90 Pulse Rate 95 Pulse Rate 107 Pulse Rate 89 Pulse Rate 84 Pulse Rate 92 Pulse Rate 83 Pulse Rate 84 Pulse Rate 93 Pulse Rate 91 Pulse Rate 85 Pulse Rate 89 Pulse Rate 90 Pulse Rate 99 Respiratory Rate 13 Respiratory Rate 16 Respiratory Rate 23 Respiratory Rate 17 Respiratory Rate 27 Respiratory Rate 15 Respiratory Rate 23 Respiratory Rate 17 Respiratory Rate 17 Respiratory Rate 15 Respiratory Rate 23 Respiratory Rate 23 Respiratory Rate 28 Respiratory Rate 20 Respiratory Rate 27 Respiratory Rate 26 Respiratory Rate 22 Respiratory Rate 20 Respiratory Rate 23 Respiratory Rate 18 Respiratory Rate 18 Respiratory Rate 30 Respiratory Rate 28 Respiratory Rate 25 Respiratory Rate 23 Respiratory Rate 36 Respiratory Rate 20 Respiratory Rate 19 Respiratory Rate 23 Respiratory Rate 28 Respiratory Rate 28 Blood Pressure 105/75 Blood Pressure 109/56 Blood Pressure 106/58 Blood Pressure 109/60 Blood Pressure 107/56 Blood Pressure 119/66 Blood Pressure 118/61 Blood Pressure 97/55 O2 Sat by Pulse Oximetry 100 O2 Sat by Pulse Oximetry 100 O2 Sat by Pulse Oximetry 100 O2 Sat by Pulse Oximetry 100 O2 Sat by Pulse Oximetry 100 O2 Sat by Pulse Oximetry 100 O2 Sat by Pulse Oximetry 100 O2 Sat by Pulse Oximetry 100 O2 Sat by Pulse Oximetry 100 O2 Sat by Pulse Oximetry 100 O2 Sat by Pulse Oximetry 100 O2 Sat by Pulse Oximetry 100 O2 Sat by Pulse Oximetry 100 O2 Sat by Pulse Oximetry 100 O2 Sat by Pulse Oximetry 100 O2 Sat by Pulse Oximetry 100 O2 Sat by Pulse Oximetry 100 O2 Sat by Pulse Oximetry 100 O2 Sat by Pulse Oximetry 100 O2 Sat by Pulse Oximetry 96 O2 Sat by Pulse Oximetry 100 O2 Sat by Pulse Oximetry 97 O2 Sat by Pulse Oximetry 99 O2 Sat by Pulse Oximetry 99 O2 Sat by Pulse Oximetry 98 O2 Sat by Pulse Oximetry 100 O2 Sat by Pulse Oximetry 100 O2 Sat by Pulse Oximetry 97 O2 Sat by Pulse Oximetry 95 O2 Sat by Pulse Oximetry 100 Intake and Output: Intake & Output 01/22/23 01/23/23 01/24/23 01/25/23 23:59 23:59 23:59 23:59 Intake Total 1881 3059 / 3059 3631 / 3631 824 / 824 Output Total 250 / 250 Balance 1881 2809 / 2809 3631 / 3631 824 / 824 Physical Exam Oriented: Normal, Time, Person and Place Eyes: Normal Ear: Normal Nose: Normal Throat: Normal Respiratory: Generalized and Diminished Cardiovascular: Normal : Normal Auscultation: Bowel Sounds: Normal Tenderness: Normal Skin: Wound (wound vac placed) Musculoskeletal: Normal Psychiatric: Normal Mood Description: Calm Affect: Normal Speech Pattern: Clear and Appropriate Laboratory and Diagnostics 01/25/23 05:00 01/25/23 05:00 Labs: 01/23/23 12:00 Leg - Right Wound Gram Stain - Final 01/23/23 12:00 Leg - Right Wound Culture - Preliminary Pseudomonas Aeruginosa 01/21/23 11:06 Knee - Right Wound Gram Stain - Final 01/21/23 11:06 Knee - Right Wound Culture - Final Pseudomonas Aeruginosa 01/21/23 11:45 Blood Blood Culture - Preliminary 01/21/23 11:35 Blood Blood Culture - Preliminary Laboratory WBC 5.7 X10^3/uL (3.6-10.0) 01/25/23 05:00 RBC 3.07 X10^6/uL (3.5-5.4) L 01/25/23 05:00 Hgb 8.4 g/dL (12.0-16.0) L 01/25/23 05:00 Hct 25.7 % (36.0-47.0) L 01/25/23 05:00 MCV 83.7 fL (80.0-100.0) 01/25/23 05:00 MCH 27.4 pg (27.0-34.0) 01/25/23 05:00 MCHC 32.7 g/dL (33.0-35.0) L 01/25/23 05:00 RDW 14.4 % (11.6-16.5) 01/25/23 05:00 Plt Count 295 X10^3/uL (150.0-450.0) 01/25/23 05:00 Plt Count Comment Adequate (ADEQUATE) 01/24/23 04:20 MPV 6.6 fL (7.4-11.0) L 01/25/23 05:00 Neut % (Auto) 65.1 % (42.0-75.0) 01/25/23 05:00 Lymph % (Auto) 16.6 % (21.0-51.0) L 01/25/23 05:00 [place] % (Auto) 12.6 % (0.0-13.0) 01/25/23 05:00 Eos % (Auto) 5.1 % (0.9-2.9) H 01/25/23 05:00 Baso % (Auto) 0.6 % (0.2-1.0) 01/25/23 05:00 Neut # (Auto) 3.7 x10^3/uL (2.2-4.8) 01/25/23 05:00 Lymph # (Auto) 0.9 X10^3/uL (1.3-2.9) L 01/25/23 05:00 [place] # (Auto) 0.7 x10^3/uL (0.3-0.8) 01/25/23 05:00 Eos # (Auto) 0.3 x10^3/uL (0.0-0.2) H 01/25/23 05:00 Baso # (Auto) 0.0 X10^3/uL (0.0-0.1) 01/25/23 05:00 Absolute Nucleated RBC 0.0 /100WBC 01/25/23 05:00 Plt Morphology Comment Normal (NORMAL) 01/24/23 04:20 RBC Morphology Normal (NORMAL) 01/24/23 04:20 Sodium 138 mmol/L (136-145) 01/25/23 05:00 Corrected Sodium TNP 01/25/23 05:00 Potassium 4.0 mmol/L (3.5-5.1) 01/25/23 05:00 Chloride 107 mmol/L (98-107) 01/25/23 05:00 Carbon Dioxide 25.1 mmol/L (21-32) 01/25/23 05:00 BUN 6 mg/dL (7-18) L 01/25/23 05:00 Creatinine 0.97 mg/dL (0.55-1.02) 01/25/23 05:00 Est GFR (MDRD) Af Amer > 60 (>60) 01/25/23 05:00 Est GFR (MDRD) Non-Af > 60 (>60) 01/25/23 05:00 Glucose 99 mg/dL (65-99) 01/25/23 05:00 POC Glucose (mg/dL) 75 mg/dL (65-99) 01/25/23 06:25 Lactic Acid Cancelled 01/21/23 11:45 Calcium 7.7 mg/dL (8.5-10.1) L 01/25/23 05:00 Corrected Calcium 9.7 mg/dL (8.5-10.1) 01/25/23 05:00 Total Bilirubin 0.20 mg/dL (0.2-1.0) 01/25/23 05:00 AST 17 Units/L (15-37) 01/25/23 05:00 ALT 12 Units/L (12-78) 01/25/23 05:00 Alkaline Phosphatase 54 Units/L (46-116) 01/25/23 05:00 C-Reactive Protein 54.30 mg/L (0-3.0) H 01/25/23 05:00 Total Protein 5.3 g/dL (6.4-8.2) L 01/25/23 05:00 Albumin 1.5 g/dL (3.4-5.0) L 01/25/23 05:00 Globulin 3.8 g/dL (2.5-4.5) 01/25/23 05:00 Albumin/Globulin Ratio 0.4 Ratio (1.1-2.1) L 01/25/23 05:00 Vancomycin Trough 20.8 ug/mL (15-20) H* 01/23/23 21:30 Plan (1) Cellulitis of leg, right: Status: Acute Plan: S/P DEBRIDEMENT AND WOUND VAC PLACEMENT, ZOSYN 3.375G IV TID, VANCOMYCIN 1G IV Q8H, MORPHINE SULFATE 1-2MG IV Q4H PRN, HUMULIN R SLIDING SCALE, OTBS ACHS, NORCO 5/325MG Q6H PRN, LOVENOX 40MG SC DAILY, AND TYLENOL 650MG PO Q6H PRN (2) Non-healing wound of right lower extremity: Status: Acute (3) HTN (hypertension): Status: Chronic Qualifiers: Hypertension type: primary hypertension Qualified Code(s): I10 - Essential (primary) hypertension Plan: CONTINUE LISINOPRIL (4) Seizure disorder: Status: Chronic Plan: CONTINUE LEVETIRACETAM
[2023-01-25] MEDS: ZOFRAN INJ 4 MG VIAL IVP PRN (13:19)
[2023-01-25] MEDS: NORCO 7.5/325 MG TAB PO PRN (16:43)
[2023-01-25 18:07] LABS: CREATININE 0.94 mg/dL (0.55-1.02); VANCOMYCIN,TROUGH 15.6 ug/mL (15-20)
--- NOTE | 2023-01-25 23:05 | NOTE.SOAP ---
Soap Note Note for Day of Date of Exam: 01/25/23 Subjective Data Subjective Data: POD # 2 after debridement of right leg wound and wound vacuum placement. Objective Data Temperature: 98.1 F Pulse Rate: 94 Respiratory Rate: 21 Blood Pressure: 123/61 O2 Sat by Pulse Oximetry: 100 Objective Data: Wound vacuum intact right leg with little output Assessment Assessment: Infected wound right leg Plan Plan: IV antibiotics. Will change wound vacuum tomorrow
[2023-01-26] MEDS: NORCO 7.5/325 MG TAB PO PRN ×4 (00:45→21:37)
--- NOTE | 2023-01-26 02:37 | DR.OPNOTE ---
OP NOTE Pre-Op Diagnosis: Infected wound to the right anterior tibial surface below the knee Post-Op Diagnosis: same Procedure Date Date Of Procedure: 01/23/23 Procedure: PROCEDURE : excision of infected wound right anterior tibial surface and placement of wound vacuum NARRATIVE : The patient was taken to the operative suite and placed in the Supine position. She was given intravenous sedation supervised by myself. The entire right leg below the knee was prepped and draped in sterile fashion. Time out for the procedure obtained. The skin around the wound was infiltrated with 0.5% Marcaine. Incision was made around the edge circumferentially with a number 15 knife blade and electrocautery . Hemostasis obtained with electrocautery. Wound measured 5 by 6 by 0.5 cm. Black foam was placed in the wound covering it entirely. It was covered with an adhesive sheet . A one inch square of the adhesive sheet removed over top of the black foam and a circular tract pad applied to this and vacuum activated with 125 mm of Hg suction , continuous suction and medium intensity. The patient was taken back to ICU in good condition. Type of Anesthesia: Local (0.5% marcaine ) Anesthesia Comment: plus MAC Findings: above Specimen/Pathology: cultures of wound obtained Type of Fluids Used:: Lactated Ringers EBL: minimal Complications:: none Needle/Sponge Count:: correct Disposition/Condition: Pt. tolerated procedure without difficulty. Taken back to the ICU in stable condition.
[2023-01-26] MEDS: MORPHINE SULFATE INJ 2 MG INJ IVP PRN (04:13)
[2023-01-26] MEDS: VANCOMYCIN IV *PREMIX 1 G/200 ML BAG 1 G/200 ML PIGGYBACK IV SCH ×2 (05:07→18:15)
[2023-01-26 05:44] LABS: BASOPHILS # (AUTO) 0.1 X10^3/uL (0.0-0.1); EOSINOPHILS # (AUTO) 0.3 x10^3/uL (0.0-0.2); EOSINOPHILS % (AUTO) 5.2 % (0.9-2.9); HEMOGLOBIN 8.8 g/dL (12.0-16.0); LYMPHOCYTES % (AUTO) 17.1 % (21.0-51.0); MEAN CORPUSCULAR HEMOGLOBIN 27.2 pg (27.0-34.0); MEAN CORPUSCULAR HGB CONC 32.6 g/dL (33.0-35.0); MEAN CORPUSCULAR VOLUME 83.4 fL (80.0-100.0); MONOCYTES # (AUTO) 0.6 x10^3/uL (0.3-0.8); MONOCYTES % (AUTO) 10.7 % (0.0-13.0); NEUTROPHILS # (AUTO) 3.8 x10^3/uL (2.2-4.8); PLATELET COUNT 330 X10^3/uL (150.0-450.0); RED BLOOD COUNT 3.24 X10^6/uL (3.5-5.4); RED CELL DISTRIBUTION WIDTH 14.4 % (11.6-16.5); WHITE BLOOD COUNT 5.8 X10^3/uL (3.6-10.0)
[2023-01-26 06:02] LABS: ALANINE AMINOTRANSFERASE 13 Units/L (12-78); ALBUMIN 1.6 g/dL (3.4-5.0); ALKALINE PHOSPHATASE 54 Units/L (46-116); ASPARTATE AMINO TRANSFERASE 17 Units/L (15-37); BLOOD UREA NITROGEN 6 mg/dL (7-18); CALCIUM 7.8 mg/dL (8.5-10.1); CARBON DIOXIDE 24.7 mmol/L (21-32); CHLORIDE 106 mmol/L (98-107); COR CA(FOR HYPOALB) 9.7 mg/dL (8.5-10.1); CREATININE 0.94 mg/dL (0.55-1.02); GLUCOSE 89 mg/dL (65-99); POTASSIUM 4.1 mmol/L (3.5-5.1); SODIUM 137 mmol/L (136-145); TOTAL PROTEIN 5.5 g/dL (6.4-8.2); eGFR NON BLACK RACES > 60 (>60)
[2023-01-26] MEDS: ZOSYN VIAL 3.375 GRAMS 3.375 G in NS 100 ML IV 100 ML IV SCH ×3 (06:10→21:10)
[2023-01-26] MEDS: LOVENOX INJ 40 MG SYR SC SCH (08:41)
[2023-01-26] MEDS: KEPPRA TAB 500 MG PO SCH ×2 (08:41→21:10)
[2023-01-26] MEDS: ZOFRAN INJ 4 MG VIAL IVP PRN (13:10)
[2023-01-26] MEDS: D5 NS 1,000 ML IV 1,000 ML IV SCH ×2 (16:00→17:42)
[2023-01-26] MEDS ORDERED: DILAUDID INJ IVP ONE (17:01)
[2023-01-26] MEDS ORDERED: DILAUDID INJ ONE (17:03)
--- NOTE | 2023-01-26 17:37 | NOTE.SOAP ---
Soap Note Note for Day of Date of Exam: 01/26/23 Subjective Data Subjective Data: Pod # 3 after debridement of right leg wound and application of wound vacuum . Patient is continuing to make progress but I have not seen her put of bed. Objective Data Temperature: 98.2 F Pulse Rate: 100 Respiratory Rate: 17 Blood Pressure: 116/61 O2 Sat by Pulse Oximetry: 100 Objective Data: Wound 6x 5 x 0.5 cm. Wound with small amount of exudate . Not enough to have any significant drainage into the canister. Still only bacteria from the wound culture growing is Pseudomonas sensitive to Cipro. On Vancomycin and Zosyn and it is sensitive to both. Wound vacuum changed by me at bedside. Assessment Assessment: Wound right leg s/ debridement. Patient may be discharged home from my standpoint on PO Cipro with Home Health Consult for wound vacuum . Plan Plan: as above
[2023-01-26] MEDS: GLUTOSE 15 GEL ORAL PO PRN (20:10)
[2023-01-26] MEDS ORDERED: COLACE CAP 100 MG PO PRN (20:44)
--- NOTE | 2023-01-26 22:09 | PCM.PROG ---
Progress Note - Progress Note for Day of Date of Exam: 01/26/23 - Subjective Subjective: IS CURRENTLY OBSERVATION STATUS FOR TREATMENT OF CELLULITIS OF THE RIGHT LEG AND A NON-HEALING WOUND OF THE RIGHT LOWER EXTREMITY. SHE IS DAY 3 STATUS POST DEBRIDEMENT AND PLACEMENT OF WOUND VAC. SHE HAS A PMH OF HTN AND SEIZURE DISORDER. TODAY, SHE IS ALERT AND ORIENTED, LYING IN BED ON MORNING ROUNDS. SHE CONTINUES TO COMPLAIN OF INTERMITTENT PAIN TO THE RLE. SHE REPORTS SLIGHT IMPROVEMENT IN SYMPTOMS SINCE ADMISSION. NURSING STAFF REPORTS THAT SHE HASNT BEEN OUT OF BED MUCH. ON EXAMINATION, HEART IS REGULAR IN RATE AND RHYTHM. BILATERAL LUNGS ARE NOTED WITH DIMINISHED LUNG SOUNDS THROUGHOUT. ABDOMEN IS ROUND, SOFT, AND NON-TENDER WITH NORMAL BOWEL SOUNDS NOTED IN ALL QUADRANTS. WOUND VAC IS NOTED TO RIGHT LOWER EXTREMITY. HER VITALS THIS MORNING ARE: 98.3-93-13-100%-116/58. LABS WERE OBTAINED. WBC 5.8, RBC 3.24, HGB 8.8, HCT 27.0, PLT COUNT 330, SODIUM 137, POTASSIUM 4.1, CHLORIDE 106, CARBON DIOXIDE 24.7, BUN 6, CREATININE 0.94, GLUCOSE 89, CALCIUM 7.8, TOTAL BILI 0.20, AST 17, ALT 13, ALK PHOS 54, TOTAL PROTEIN 5.5, ALBUMIN 1.6. BLOOD CULTURES ARE PENDING. 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 SHE IS CURRENTLY RECEIVING D5NS AT 75 ML/HR, ZOSYN 3.375G IV TID, VANCOMYCIN 1G IV Q8H, MORPHINE SULFATE 1-2MG IV Q4H PRN, HUMULIN R SLIDING SCALE, OTBS ACHS, NORCO 7.5/325MG Q6H PRN, LOVENOX 40MG SC DAILY, COLACE 200MG PO Q12H PRN, AND TYLENOL 650MG PO Q6H PRN. HER HOME MEDICATION OF KEPPRA WAS RESUMED. WE WILL HAVE PHYSICAL THERAPY WORK WITH HER TODAY. OTHERWISE, WE WILL FOLLOW UP WITH AM LABS AND CONTINUE TO MONITOR. TIME SPENT ON CLINICAL ASSESSMENT, REVIEWING LABS AND IMAGING, DECISION MAKING, AND DOCUMENTATION GREATER THAN 45 MINUTES. - Past Medical Family Social History Past Med/Fam/Surg Hx: No changes since H&P Allergies: Allergies No Known Drug Allergies Allergy (Verified 01/17/23 18:00) - Review of Systems ROS: No change since H&P - Vital Signs and I&O's Vital Signs: Vital Signs Temperature 98.1 F Temperature 98.2 F Temperature 98.0 F Pulse Rate 88 Pulse Rate 89 Pulse Rate 85 Pulse Rate 87 Pulse Rate 89 Pulse Rate 100 Pulse Rate 94 Pulse Rate 104 Pulse Rate 85 Pulse Rate 85 Pulse Rate 80 Pulse Rate 86 Pulse Rate 85 Pulse Rate 89 Pulse Rate 90 Pulse Rate 107 Pulse Rate 88 Pulse Rate 88 Pulse Rate 95 Pulse Rate 101 Respiratory Rate 18 Respiratory Rate 14 Respiratory Rate 14 Respiratory Rate 14 Respiratory Rate 15 Respiratory Rate 14 Respiratory Rate 15 Respiratory Rate 17 Respiratory Rate 21 Respiratory Rate 13 Respiratory Rate 16 Respiratory Rate 17 Respiratory Rate 13 Respiratory Rate 21 Respiratory Rate 20 Respiratory Rate 24 Respiratory Rate 19 Respiratory Rate 13 Respiratory Rate 27 Respiratory Rate 21 Respiratory Rate 30 Respiratory Rate 18 Respiratory Rate 20 Respiratory Rate 19 Respiratory Rate 17 Blood Pressure 110/80 Blood Pressure 125/79 Blood Pressure 125/59 Blood Pressure 127/66 Blood Pressure 116/61 Blood Pressure 123/60 Blood Pressure 106/59 Blood Pressure 128/60 O2 Sat by Pulse Oximetry 98 O2 Sat by Pulse Oximetry 100 O2 Sat by Pulse Oximetry 100 O2 Sat by Pulse Oximetry 98 O2 Sat by Pulse Oximetry 98 O2 Sat by Pulse Oximetry 100 O2 Sat by Pulse Oximetry 99 O2 Sat by Pulse Oximetry 82 O2 Sat by Pulse Oximetry 100 O2 Sat by Pulse Oximetry 93 O2 Sat by Pulse Oximetry 95 O2 Sat by Pulse Oximetry 94 O2 Sat by Pulse Oximetry 98 O2 Sat by Pulse Oximetry 99 O2 Sat by Pulse Oximetry 100 O2 Sat by Pulse Oximetry 100 O2 Sat by Pulse Oximetry 100 O2 Sat by Pulse Oximetry 100 O2 Sat by Pulse Oximetry 99 O2 Sat by Pulse Oximetry 100 Intake and Output: Intake & Output 01/24/23 01/25/23 01/26/23 01/27/23 11:59 11:59 11:59 11:59 Intake Total 3436 / 3436 3828 / 3828 4352 / 4352 1298 / 1298 Output Total 250 / 250 Balance 3186 / 3186 3828 / 3828 4352 / 4352 1298 / 1298 - Physical Exam Oriented: Normal, Time, Person, Place Eyes: Normal Ear: Normal Nose: Normal Throat: Normal Respiratory: Generalized, Diminished Cardiovascular: Normal : Normal Auscultation: Bowel Sounds: Normal Palpation: Normal Tenderness: Normal Skin: Wound (wound vac placed) Musculoskeletal: Normal Psychiatric: Normal Mood Description: Calm Affect: Normal Speech Pattern: Clear, Appropriate - Laboratory and Diagnostics Result Diagrams: 01/26/23 04:15 01/26/23 04:15 Labs: 01/21/23 11:45 Blood Blood Culture - Final 01/21/23 11:35 Blood Blood Culture - Final 01/23/23 12:00 Leg - Right Wound Gram Stain - Final 01/23/23 12:00 Leg - Right Wound Culture - Final Pseudomonas Aeruginosa 01/21/23 11:06 Knee - Right Wound Gram Stain - Final 01/21/23 11:06 Knee - Right Wound Culture - Final Pseudomonas Aeruginosa Laboratory WBC 5.8 X10^3/uL (3.6-10.0) 01/26/23 04:15 RBC 3.24 X10^6/uL (3.5-5.4) L 01/26/23 04:15 Hgb 8.8 g/dL (12.0-16.0) L 01/26/23 04:15 Hct 27.0 % (36.0-47.0) L 01/26/23 04:15 MCV 83.4 fL (80.0-100.0) 01/26/23 04:15 MCH 27.2 pg (27.0-34.0) 01/26/23 04:15 MCHC 32.6 g/dL (33.0-35.0) L 01/26/23 04:15 RDW 14.4 % (11.6-16.5) 01/26/23 04:15 Plt Count 330 X10^3/uL (150.0-450.0) 01/26/23 04:15 Plt Count Comment Adequate (ADEQUATE) 01/24/23 04:20 MPV 7.0 fL (7.4-11.0) L 01/26/23 04:15 Neut % (Auto) 66.0 % (42.0-75.0) 01/26/23 04:15 Lymph % (Auto) 17.1 % (21.0-51.0) L 01/26/23 04:15 [place] % (Auto) 10.7 % (0.0-13.0) 01/26/23 04:15 Eos % (Auto) 5.2 % (0.9-2.9) H 01/26/23 04:15 Baso % (Auto) 1.0 % (0.2-1.0) 01/26/23 04:15 Neut # (Auto) 3.8 x10^3/uL (2.2-4.8) 01/26/23 04:15 Lymph # (Auto) 1.0 X10^3/uL (1.3-2.9) L 01/26/23 04:15 [place] # (Auto) 0.6 x10^3/uL (0.3-0.8) 01/26/23 04:15 Eos # (Auto) 0.3 x10^3/uL (0.0-0.2) H 01/26/23 04:15 Baso # (Auto) 0.1 X10^3/uL (0.0-0.1) 01/26/23 04:15 Absolute Nucleated RBC 0.0 /100WBC 01/26/23 04:15 Plt Morphology Comment Normal (NORMAL) 01/24/23 04:20 RBC Morphology Normal (NORMAL) 01/24/23 04:20 Sodium 137 mmol/L (136-145) 01/26/23 04:15 Corrected Sodium TNP 01/26/23 04:15 Potassium 4.1 mmol/L (3.5-5.1) 01/26/23 04:15 Chloride 106 mmol/L (98-107) 01/26/23 04:15 Carbon Dioxide 24.7 mmol/L (21-32) 01/26/23 04:15 BUN 6 mg/dL (7-18) L 01/26/23 04:15 Creatinine 0.94 mg/dL (0.55-1.02) 01/26/23 04:15 Est GFR (MDRD) Af Amer > 60 (>60) 01/26/23 04:15 Est GFR (MDRD) Non-Af > 60 (>60) 01/26/23 04:15 Glucose 89 mg/dL (65-99) 01/26/23 04:15 POC Glucose (mg/dL) 102 mg/dL (65-99) H 01/26/23 21:08 Lactic Acid Cancelled 01/21/23 11:45 Calcium 7.8 mg/dL (8.5-10.1) L 01/26/23 04:15 Corrected Calcium 9.7 mg/dL (8.5-10.1) 01/26/23 04:15 Total Bilirubin 0.20 mg/dL (0.2-1.0) 01/26/23 04:15 AST 17 Units/L (15-37) 01/26/23 04:15 ALT 13 Units/L (12-78) 01/26/23 04:15 Alkaline Phosphatase 54 Units/L (46-116) 01/26/23 04:15 C-Reactive Protein 54.30 mg/L (0-3.0) H 01/25/23 05:00 Total Protein 5.5 g/dL (6.4-8.2) L 01/26/23 04:15 Albumin 1.6 g/dL (3.4-5.0) L 01/26/23 04:15 Globulin 3.9 g/dL (2.5-4.5) 01/26/23 04:15 Albumin/Globulin Ratio 0.4 Ratio (1.1-2.1) L 01/26/23 04:15 Vancomycin Trough 15.6 ug/mL (15-20) 01/25/23 17:30 - Plan (1) Cellulitis of leg, right Status: Acute Plan: S/P DEBRIDEMENT AND WOUND VAC PLACEMENT, D5NS AT 75 ML/HR, ZOSYN 3.375G IV TID, VANCOMYCIN 1G IV Q8H, MORPHINE SULFATE 1-2MG IV Q4H PRN, HUMULIN R SLIDING SCALE, OTBS ACHS, NORCO 7.5/325MG Q6H PRN, LOVENOX 40MG SC DAILY, AND TYLENOL 650MG PO Q6H PRN (2) Non-healing wound of right lower extremity Status: Acute (3) HTN (hypertension) Status: Chronic Qualifiers: Hypertension type: primary hypertension Qualified Code(s): I10 - Essential (primary) hypertension Plan: CONTINUE LISINOPRIL (4) Seizure disorder Status: Chronic Plan: CONTINUE LEVETIRACETAM
[2023-01-27] MEDS: NORCO 7.5/325 MG TAB PO PRN ×4 (03:39→23:05)
[2023-01-27] MEDS: D5 NS 1,000 ML IV 1,000 ML IV SCH (04:19)
[2023-01-27] MEDS: ZOSYN VIAL 3.375 GRAMS 3.375 G in NS 100 ML IV 100 ML IV SCH (05:17)
[2023-01-27] MEDS: VANCOMYCIN IV *PREMIX 1 G/200 ML BAG 1 G/200 ML PIGGYBACK IV SCH (05:17)
[2023-01-27 05:34] LABS: BASOPHILS % (AUTO) 0.8 % (0.2-1.0); EOSINOPHILS # (AUTO) 0.4 x10^3/uL (0.0-0.2); EOSINOPHILS % (AUTO) 6.8 % (0.9-2.9); HEMATOCRIT 29.5 % (36.0-47.0); HEMOGLOBIN 9.5 g/dL (12.0-16.0); LYMPHOCYTES # (AUTO) 0.9 X10^3/uL (1.3-2.9); LYMPHOCYTES % (AUTO) 15.9 % (21.0-51.0); MEAN CORPUSCULAR HEMOGLOBIN 27.3 pg (27.0-34.0); MEAN CORPUSCULAR HGB CONC 32.4 g/dL (33.0-35.0); MEAN CORPUSCULAR VOLUME 84.2 fL (80.0-100.0); MONOCYTES # (AUTO) 0.5 x10^3/uL (0.3-0.8); NEUTROPHILS # (AUTO) 3.8 x10^3/uL (2.2-4.8); NEUTROPHILS % (AUTO) 67.5 % (42.0-75.0); PLATELET COUNT 365 X10^3/uL (150.0-450.0); RED CELL DISTRIBUTION WIDTH 14.3 % (11.6-16.5); WHITE BLOOD COUNT 5.7 X10^3/uL (3.6-10.0)
[2023-01-27 05:39] LABS: ALANINE AMINOTRANSFERASE 11 Units/L (12-78); ALBUMIN 1.7 g/dL (3.4-5.0); ALKALINE PHOSPHATASE 55 Units/L (46-116); ASPARTATE AMINO TRANSFERASE 18 Units/L (15-37); BLOOD UREA NITROGEN 6 mg/dL (7-18); CARBON DIOXIDE 27.6 mmol/L (21-32); CHLORIDE 105 mmol/L (98-107); COR CA(FOR HYPOALB) 9.8 mg/dL (8.5-10.1); CREATININE 0.88 mg/dL (0.55-1.02); GLUCOSE 91 mg/dL (65-99); SODIUM 138 mmol/L (136-145); TOTAL PROTEIN 5.6 g/dL (6.4-8.2); eGFR NON BLACK RACES > 60 (>60)
[2023-01-27] MEDS: LOVENOX INJ 40 MG SYR SC SCH (08:41)
[2023-01-27] MEDS: KEPPRA TAB 500 MG PO SCH ×2 (08:41→20:14)
--- NOTE | 2023-01-27 11:03 | NOTE.SOAP ---
Soap Note Note for Day of Date of Exam: 01/27/23 Subjective Data Subjective Data: Status post debridement of right leg wound over top of the anterior tibial surface. Doing well. Only pseudomonas growing. It is sensitive to PO Cipro. Patient is increasing her activity Objective Data Temperature: 98.2 F Pulse Rate: 91 Respiratory Rate: 21 Blood Pressure: 116/75 O2 Sat by Pulse Oximetry: 97 Objective Data: wound vacuum in place without difficulty of the right leg Assessment Assessment: wound/cellulitis right leg status post debridement and placement wound vacuum Plan Plan: patient ready for discharge from my standpoint. Recommend po Cipro and home wound vacuum . Follow up with me in one week. I will sign off at this time.
--- NOTE | 2023-01-27 12:46 | PCM.PROG ---
Progress Note - Progress Note for Day of Date of Exam: 01/27/23 - Subjective Subjective: IS CURRENTLY OBSERVATION STATUS FOR TREATMENT OF CELLULITIS OF THE RIGHT LEG AND A NON-HEALING WOUND OF THE RIGHT LOWER EXTREMITY. SHE IS DAY 4 STATUS POST DEBRIDEMENT AND PLACEMENT OF WOUND VAC. SHE HAS A PMH OF HTN AND SEIZURE DISORDER. TODAY, SHE IS ALERT AND ORIENTED, LYING IN BED ON MORNING ROUNDS. SHE CONTINUES TO COMPLAIN OF INTERMITTENT PAIN TO THE RLE. SHE REPORTS IMPROVEMENT IN SYMPTOMS SINCE ADMISSION. ON EXAMINATION, HEART IS REGULAR IN RATE AND RHYTHM. BILATERAL LUNGS ARE NOTED WITH DIMINISHED LUNG SOUNDS THROUGHOUT. ABDOMEN IS ROUND, SOFT, AND NON-TENDER WITH NORMAL BOWEL SOUNDS NOTED IN ALL QUADRANTS. WOUND VAC IS NOTED TO RIGHT LOWER EXTREMITY. MINIMAL DRAINAGE NOTED. HER VITALS THIS MORNING ARE: 98.2-94-18-97%-128/77. LABS WERE OBTAINED. WBC 5.7, RBC 3.50, HGB 9.5, HCT 29.5, PLT COUNT 365, SODIUM 138, POTASSIUM 4.0, CHLORIDE 105, BUN 6, CREATININE 0.88, GLUCOSE 91, CALCIUM 8.0, TOTAL BILI 0.20, AST 18, ALT 11, ALK PHOS 55, TOTAL PROTEIN 5.6, ALBUMIN 1.7. 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 SHE IS CURRENTLY RECEIVING D5NS AT 75 ML/HR, ZOSYN 3.375G IV TID, VANCOMYCIN 1G IV Q8H, MORPHINE SULFATE 1-2MG IV Q4H PRN, HUMULIN R SLIDING SCALE, OTBS ACHS, NORCO 7.5/325MG Q6H PRN, LOVENOX 40MG SC DAILY, COLACE 200MG PO Q12H PRN, AND TYLENOL 650MG PO Q6H PRN. HER HOME MEDICATION OF KEPPRA WAS RESUMED. SHE HAS BEEN CLEARED FOR DISCHARGE BY THE SURGEON. WE WILL ARRANGE HOME HEALTHCARE FOR MANAGEMENT OF THE WOUND VAC. OTHERWISE, WE WILL FOLLOW UP WITH AM LABS AND CONTINUE TO MONITOR. TIME SPENT ON CLINICAL ASSESSMENT, REVIEWING LABS AND IMAGING, DECISION MAKING, AND DOCUMENTATION GREATER THAN 45 MINUTES. - Past Medical Family Social History Past Med/Fam/Surg Hx: No changes since H&P Allergies: Allergies No Known Drug Allergies Allergy (Verified 01/17/23 18:00) - Review of Systems ROS: No change since H&P - Vital Signs and I&O's Vital Signs: Vital Signs Temperature 98.2 F Temperature 98.2 F Temperature 98.2 F Pulse Rate 91 Pulse Rate 101 Pulse Rate 96 Pulse Rate 101 Pulse Rate 89 Pulse Rate 97 Pulse Rate 97 Pulse Rate 104 Pulse Rate 108 Pulse Rate 91 Pulse Rate 112 Pulse Rate 127 Pulse Rate 94 Pulse Rate 94 Pulse Rate 94 Pulse Rate 109 Pulse Rate 85 Pulse Rate 84 Pulse Rate 87 Pulse Rate 98 Pulse Rate 92 Pulse Rate 89 Pulse Rate 99 Pulse Rate 98 Pulse Rate 92 Pulse Rate 85 Pulse Rate 87 Pulse Rate 94 Pulse Rate 90 Pulse Rate 90 Respiratory Rate 18 Respiratory Rate 21 Respiratory Rate 24 Respiratory Rate 20 Respiratory Rate 26 Respiratory Rate 17 Respiratory Rate 20 Respiratory Rate 13 Respiratory Rate 23 Respiratory Rate 20 Respiratory Rate 21 Respiratory Rate 12 Respiratory Rate 29 Respiratory Rate 22 Respiratory Rate 18 Respiratory Rate 18 Respiratory Rate 28 Respiratory Rate 26 Respiratory Rate 29 Respiratory Rate 20 Respiratory Rate 27 Respiratory Rate 19 Respiratory Rate 16 Respiratory Rate 17 Respiratory Rate 27 Respiratory Rate 20 Respiratory Rate 16 Respiratory Rate 18 Respiratory Rate 15 Respiratory Rate 16 Respiratory Rate 17 Blood Pressure 116/75 Blood Pressure 116/75 Blood Pressure 116/75 Blood Pressure 128/77 Blood Pressure 128/77 Blood Pressure 117/56 Blood Pressure 117/56 Blood Pressure 107/60 Blood Pressure 107/60 Blood Pressure 103/59 Blood Pressure 103/59 O2 Sat by Pulse Oximetry 97 O2 Sat by Pulse Oximetry 97 O2 Sat by Pulse Oximetry 97 O2 Sat by Pulse Oximetry 97 O2 Sat by Pulse Oximetry 97 O2 Sat by Pulse Oximetry 98 O2 Sat by Pulse Oximetry 97 O2 Sat by Pulse Oximetry 97 O2 Sat by Pulse Oximetry 97 O2 Sat by Pulse Oximetry 97 O2 Sat by Pulse Oximetry 99 O2 Sat by Pulse Oximetry 97 O2 Sat by Pulse Oximetry 97 O2 Sat by Pulse Oximetry 94 O2 Sat by Pulse Oximetry 94 O2 Sat by Pulse Oximetry 96 O2 Sat by Pulse Oximetry 97 O2 Sat by Pulse Oximetry 95 O2 Sat by Pulse Oximetry 95 Intake and Output: Intake & Output 01/25/23 01/26/23 01/27/23 01/28/23 11:59 11:59 11:59 11:59 Intake Total 3828 / 3828 4352 / 4352 2829 / 2829 Balance 3828 / 3828 4352 / 4352 2829 / 2829 - Physical Exam Oriented: Normal, Time, Person, Place Eyes: Normal Ear: Normal Nose: Normal Throat: Normal Respiratory: Generalized, Diminished Cardiovascular: Normal : Normal Auscultation: Bowel Sounds: Normal Palpation: Normal Tenderness: Normal Skin: Wound (wound vac placed) Musculoskeletal: Normal Psychiatric: Normal Mood Description: Calm Affect: Normal Speech Pattern: Clear, Appropriate - Laboratory and Diagnostics Result Diagrams: 01/27/23 04:10 01/27/23 04:10 Labs: 01/21/23 11:45 Blood Blood Culture - Final 01/21/23 11:35 Blood Blood Culture - Final 01/23/23 12:00 Leg - Right Wound Gram Stain - Final 01/23/23 12:00 Leg - Right Wound Culture - Final Pseudomonas Aeruginosa 01/21/23 11:06 Knee - Right Wound Gram Stain - Final 01/21/23 11:06 Knee - Right Wound Culture - Final Pseudomonas Aeruginosa Laboratory WBC 5.7 X10^3/uL (3.6-10.0) 01/27/23 04:10 RBC 3.50 X10^6/uL (3.5-5.4) 01/27/23 04:10 Hgb 9.5 g/dL (12.0-16.0) L 01/27/23 04:10 Hct 29.5 % (36.0-47.0) L 01/27/23 04:10 MCV 84.2 fL (80.0-100.0) 01/27/23 04:10 MCH 27.3 pg (27.0-34.0) 01/27/23 04:10 MCHC 32.4 g/dL (33.0-35.0) L 01/27/23 04:10 RDW 14.3 % (11.6-16.5) 01/27/23 04:10 Plt Count 365 X10^3/uL (150.0-450.0) 01/27/23 04:10 Plt Count Comment Adequate (ADEQUATE) 01/24/23 04:20 MPV 7.0 fL (7.4-11.0) L 01/27/23 04:10 Neut % (Auto) 67.5 % (42.0-75.0) 01/27/23 04:10 Lymph % (Auto) 15.9 % (21.0-51.0) L 01/27/23 04:10 [place] % (Auto) 9.0 % (0.0-13.0) 01/27/23 04:10 Eos % (Auto) 6.8 % (0.9-2.9) H 01/27/23 04:10 Baso % (Auto) 0.8 % (0.2-1.0) 01/27/23 04:10 Neut # (Auto) 3.8 x10^3/uL (2.2-4.8) 01/27/23 04:10 Lymph # (Auto) 0.9 X10^3/uL (1.3-2.9) L 01/27/23 04:10 [place] # (Auto) 0.5 x10^3/uL (0.3-0.8) 01/27/23 04:10 Eos # (Auto) 0.4 x10^3/uL (0.0-0.2) H 01/27/23 04:10 Baso # (Auto) 0.0 X10^3/uL (0.0-0.1) 01/27/23 04:10 Absolute Nucleated RBC 0.1 /100WBC 01/27/23 04:10 Plt Morphology Comment Normal (NORMAL) 01/24/23 04:20 RBC Morphology Normal (NORMAL) 01/24/23 04:20 Sodium 138 mmol/L (136-145) 01/27/23 04:10 Corrected Sodium TNP 01/27/23 04:10 Potassium 4.0 mmol/L (3.5-5.1) 01/27/23 04:10 Chloride 105 mmol/L (98-107) 01/27/23 04:10 Carbon Dioxide 27.6 mmol/L (21-32) 01/27/23 04:10 BUN 6 mg/dL (7-18) L 01/27/23 04:10 Creatinine 0.88 mg/dL (0.55-1.02) 01/27/23 04:10 Est GFR (MDRD) Af Amer > 60 (>60) 01/27/23 04:10 Est GFR (MDRD) Non-Af > 60 (>60) 01/27/23 04:10 Glucose 91 mg/dL (65-99) 01/27/23 04:10 POC Glucose (mg/dL) 62 mg/dL (65-99) L 01/27/23 10:51 Lactic Acid Cancelled 01/21/23 11:45 Calcium 8.0 mg/dL (8.5-10.1) L 01/27/23 04:10 Corrected Calcium 9.8 mg/dL (8.5-10.1) 01/27/23 04:10 Total Bilirubin 0.20 mg/dL (0.2-1.0) 01/27/23 04:10 AST 18 Units/L (15-37) 01/27/23 04:10 ALT 11 Units/L (12-78) L 01/27/23 04:10 Alkaline Phosphatase 55 Units/L (46-116) 01/27/23 04:10 C-Reactive Protein 54.30 mg/L (0-3.0) H 01/25/23 05:00 Total Protein 5.6 g/dL (6.4-8.2) L 01/27/23 04:10 Albumin 1.7 g/dL (3.4-5.0) L 01/27/23 04:10 Globulin 3.9 g/dL (2.5-4.5) 01/27/23 04:10 Albumin/Globulin Ratio 0.4 Ratio (1.1-2.1) L 01/27/23 04:10 Vancomycin Trough 15.6 ug/mL (15-20) 01/25/23 17:30 - Plan (1) Cellulitis of leg, right Status: Acute Plan: S/P DEBRIDEMENT AND WOUND VAC PLACEMENT, D5NS AT 75 ML/HR, ZOSYN 3.375G IV TID, VANCOMYCIN 1G IV Q8H, MORPHINE SULFATE 1-2MG IV Q4H PRN, HUMULIN R SLIDING SCALE, OTBS ACHS, [place]CO 7.5/325MG Q6H PRN, LOVENOX 40MG SC DAILY, AND TYLENOL 650MG PO Q6H PRN (2) Non-healing wound of right lower extremity Status: Acute (3) HTN (hypertension) Status: Chronic Qualifiers: Hypertension type: primary hypertension Qualified Code(s): I10 - Essential (primary) hypertension Plan: CONTINUE LISINOPRIL (4) Seizure disorder Status: Chronic Plan: CONTINUE LEVETIRACETAM
[2023-01-27] MEDS: CIPRO TAB 500 MG PO SCH (20:14)
[2023-01-28 04:20] VITALS: RESP 20
[2023-01-28 05:12] LABS: BASOPHILS % (AUTO) 0.8 % (0.2-1.0); EOSINOPHILS # (AUTO) 0.4 x10^3/uL (0.0-0.2); EOSINOPHILS % (AUTO) 6.2 % (0.9-2.9); HEMATOCRIT 26.9 % (36.0-47.0); HEMOGLOBIN 8.9 g/dL (12.0-16.0); LYMPHOCYTES # (AUTO) 1.1 X10^3/uL (1.3-2.9); LYMPHOCYTES % (AUTO) 19.6 % (21.0-51.0); MEAN CORPUSCULAR HEMOGLOBIN 27.5 pg (27.0-34.0); MEAN CORPUSCULAR VOLUME 83.4 fL (80.0-100.0); MEAN PLATELET VOLUME 6.8 fL (7.4-11.0); MONOCYTES # (AUTO) 0.5 x10^3/uL (0.3-0.8); MONOCYTES % (AUTO) 9.6 % (0.0-13.0); NEUTROPHILS # (AUTO) 3.7 x10^3/uL (2.2-4.8); NEUTROPHILS % (AUTO) 63.8 % (42.0-75.0); PLATELET COUNT 377 X10^3/uL (150.0-450.0); RED BLOOD COUNT 3.23 X10^6/uL (3.5-5.4); RED CELL DISTRIBUTION WIDTH 14.3 % (11.6-16.5); WHITE BLOOD COUNT 5.7 X10^3/uL (3.6-10.0)
[2023-01-28 05:26] LABS: ALANINE AMINOTRANSFERASE 11 Units/L (12-78); ALBUMIN 1.6 g/dL (3.4-5.0); ALKALINE PHOSPHATASE 49 Units/L (46-116); ASPARTATE AMINO TRANSFERASE 18 Units/L (15-37); BLOOD UREA NITROGEN 6 mg/dL (7-18); CALCIUM 7.8 mg/dL (8.5-10.1); CARBON DIOXIDE 27.7 mmol/L (21-32); CHLORIDE 105 mmol/L (98-107); COR CA(FOR HYPOALB) 9.7 mg/dL (8.5-10.1); CREATININE 0.88 mg/dL (0.55-1.02); GLUCOSE 88 mg/dL (65-99); POTASSIUM 4.1 mmol/L (3.5-5.1); SODIUM 139 mmol/L (136-145); TOTAL PROTEIN 5.5 g/dL (6.4-8.2); eGFR NON BLACK RACES > 60 (>60)
[2023-01-28] MEDS: CIPRO TAB 500 MG PO SCH (08:43)
[2023-01-28] MEDS: KEPPRA TAB 500 MG PO SCH (08:44)
[2023-01-28] MEDS: NORCO 7.5/325 MG TAB PO PRN ×2 (08:48→14:26)
[2023-01-28 08:51] VITALS: O2SAT 96
[2023-01-28] MEDS: LOVENOX INJ 40 MG SYR SC SCH (10:47)
[2023-01-28 13:45] VITALS: BP 151/79; PULSE 94; TEMP 97.2
== END 2023-01-28 14:45 | disposition home health service (06) ==
LOC: ER 10:06 → ICU 10:06
PROVIDERS: ADMIT Internal Medicine; ATTEND Internal Medicine
DX: I10 Essential (primary) hypertension; B96.5 Pseudomonas (aeruginosa) (mallei) (pseudomallei) as the cause of diseases classified elsewhere; L03.115 Cellulitis of right lower limb; M25.561 Pain in right knee; G40.802 Other epilepsy, not intractable, without status epilepticus; X58.XXXA Exposure to other specified factors, initial encounter; S81.801A Unspecified open wound, right lower leg, initial encounter